=== PATIENT | female | born 1955 | race Caucasian/White ===

== ENCOUNTER 2017-09-15 19:16 | Inpatient (IN) | payer OTHER, SELFPAY ==
[~2017-09-15 19:16] MED LIST: ISOVUE-370 76%-LOCM 1 ML ONE
[2017-09-15 19:55] LABS: Mean Corpuscular HGB CONC 33.6 g/dL (32.0-36.0); Mean Corpuscular Hemoglobin 32.8 pg (27.0-31.0); Mean Corpuscular Volume 97.6 fl (81.0-99.0); Mean Platelet Volume 7.2 fL (7.4-10.4); Platelet Count 399 thou/uL (130-400); RBC Distribution Width 11.8 % (11.5-14.5); Red Blood Cell (RBC) Count 4.26 mill/uL (4.20-5.40); White Blood Cell (WBC) Count 20.4 thou/uL (4.8-10.8)
[2017-09-15] MEDS ORDERED: Acetaminophen 500 MG TAB ONE (19:56)
[2017-09-15 20:00] LABS: INR-International Normal Ratio 1.1; PTT 38.9 SEC (22.9-36.1); Prothrombin Time 14.5 SEC (12.0-14.7)
[2017-09-15] MEDS ORDERED: Piperacillin/Tazobactam 3.375 GM in Sodium Chloride 0.9% 100 ML IVPB SCH (20:00)
[2017-09-15 20:17] LABS: CO2 Tension 33.1 mmHg (35.0-45.0); pH, Arterial 7.47 (7.35-7.45)
[2017-09-15 20:18] LABS: Actual Bicarbonate (HCO3a) 23.3 mEq/L (22-26); Base Excess (BEa) 0.2 mEq/L (0 (+/-) 2.5); Hematocrit-ABG 44.2 % (36.0-47.0); O2 Tension (PaO2) 85.4 mmHg (80.0-100.0)
[2017-09-15 20:19] LABS: ALT (SGPT) 20 U/L (8-55); AST (SGOT) 15 U/L (5-34); Albumin 3.8 g/dL (3.4-4.8); Alkaline Phosphatase 88 U/L (40-150); Anion Gap 16 mmol/L (10-20); BUN (Urea Nitrogen) 9 mg/dL (9.8-20.1); Bilirubin, Total 0.6 mg/dL (0.2-1.2); CK (CPK) 42 U/L (29-168); CKMB 0.2 ng/mL (0-6.6); Calc. Creatinine Clearance 0 mL/min (70-130); Calcium 9.5 mg/dL (7.8-10.44); Carbon Dioxide 21 mmol/L (23-31); Chloride 100 mmol/L (98-107); Estimated GFR-MDRD 73; Globulin 4.5 g/dL (2.4-3.5); Glucose 127 mg/dL (80-115); Lipase 14 U/L (8-78); Magnesium 1.9 mg/dL (1.6-2.6); Potassium 3.7 mmol/L (3.5-5.1); Protein, Total 8.3 g/dL (6.0-8.3); Sodium 133 mmol/L (136-145); Troponin I Less than 0.010 ng/mL (< 0.028)
[2017-09-15 20:19] LABS: Analyzer IN Cardio ER; Puncture Site RR
[2017-09-15 20:20] LABS: Bilirubin Negative (Negative); Blood, Urine Negative (Negative); Clarity CLOUDY (Clear); Glucose, Urine (Dipstick) Negative (Negative); Leukocyte Negative (Negative); Nitrite Negative (Negative); Protein, Urine (Dipstick) 30 mg/dL (Neg-Trace)
[2017-09-15 20:21] LABS: Calcium, Ionized 1.2 mmol/L (1.12-1.30)
[2017-09-15 20:21] LABS: Bacteria/HPF None Seen HPF (None Seen); Hyaline Casts/LPF 0-3 HYALINE CAST LPF (0-3 Hyaline); Pathc Cast-AUWi Flag 0.27 (0-2.49)
[2017-09-15] MEDS ORDERED: Fentanyl 100 MCG/2 ML VIAL ONE (20:21)
[2017-09-15 20:27] LABS: Band 2 % (5-11); Lymphocytes 3 % (21-51); MDiff Complete? YES; Monocytes 8 % (0-10); Neutrophil 87 % (42-75); PLT Morphology Comment Appears Adequate
[2017-09-15 20:30] LABS: RBC/HPF 0-3 HPF (0-3)
--- NOTE | 2017-09-15 20:34 | RAD ---
PORTABLE CHEST: 09/15/17 HISTORY: Shortness of breath. Opacification of the left lung base is noted. Right lung appears well aerated. IMPRESSION: Dense consolidation of the left lung base. POS: [facility]
--- NOTE | 2017-09-15 21:57 | CT ---
CT PULMONARY ANGIO OF CHEST WITH IV ENHANCEMENT: 09/15/17 Multiple axial tomograms obtained through the chest following angio protocol with multiplanar reconst ructions and 3D postprocessing. HISTORY: Shortness of breath. Cough. Pulmonary arteries are suboptimally opacified. There is no evidence of proximal pulmonary embolus to the segmental level. Thoracic aorta is unremarkable. No evidence of dissection. The mediastinum is un remarkable with nonspecific mediastinal lymph nodes seen. There is a moderate sized left pleural effusion, some of which appears loculated along the lateral lo wer chest. There is dense left basilar atelectasis. There is streaky atelectasis in the right lung ba se. IMPRESSION: 1. No evidence of proximal pulmonary embolus. 2. Moderate sized left pleural effusion, some of which appears loculated along the lateral lower chest wall. There is dense left basilar atelectasis. 3. Streaky atelectasis in the right lung base. POS: [facility]
--- NOTE | 2017-09-16 01:03 | HP-2 ---
DATE OF ADMISSION: 09/15/2017 CODE STATUS: FULL. PRIMARY CARE PHYSICIAN: Mati Villeda MD ATTENDING PHYSICIAN: Mati Villeda MD RESIDENT: Ermias Shabazz MD, PGY1 CHIEF COMPLAINT: Shortness of breath and cough. HISTORY OF PRESENT ILLNESS: This is a 62-year-old female who came in here with a complaint of shortness of breath. She stated that she started having a cough on Sunday, would have lots of co ughing fits, went and saw Dr. Villeda on , was told she had bronchitis, was given amoxicillin a nd an extra inhaler. She has a history of COPD, on top of her ProAir. She stated that this evening, she started burning up. When she went to sit down on a chair, started burning up, started getting r eal short of breath, coughing, and could not catch her breath and at this time called 911. She repor ts with the cough having productive sputum; sometimes mucousy color, sometimes brown in color. She a lso reports being feverish for over a month. She said that at least once a day, she would feel like she had heat up. Did not take any temperatures at home, just felt feverish. She said she had one ti me also where she got the chills. She says that she has had increased fatigue and shortness of breat h since Sunday with this cough. Reports having a little bit of a sore throat. Reports pain in the l eft side of her chest and rib area. Denies any chest pain. Does report feeling like her heart beats fast at times, she said after sometimes of coughing fits. Denies any diarrhea, nausea, vomiting, co nstipation. Denies any rashes, itching, or muscle pains. She also has had no sick contact. When yaneli barajas went to the clinic also she was checked for flu there and was negative as well. REVIEW OF SYSTEMS: All review of systems not listed in the HPI are otherwise negative at this time. PAST MEDICAL HISTORY: Hypertension, COPD, type 2 diabetes mellitus. PAST SURGICAL HISTORY: Had a cyst removed from her leg when she was age 4. ALLERGIES: CODEINE. MEDICATIONS: She did not have her medication list with her and did not know medicine. She knows she was taking amoxicillin for the bronchitis and taking ProAir inhaler. FAMILY HISTORY: Insignificant. SOCIAL HISTORY: She quit few years ago in April, but she was a 9-gngs-qrm-day smoker for 40+ yea rs. No alcohol use. No illicit drug use. PHYSICAL EXAMINATION: VITAL SIGNS: Blood pressure was 141/91, pulse was 119, respirations 22, temperature was 100.4, pulse ox was 94% on 3 liters. Current weight was 99.7 kilograms. GENERAL: She is alert and oriented x3. Well developed, obese, appropriately interactive. EYES: Conjunctivae within normal limit. ENT: Nasal mucosa within normal limit. Oropharynx within normal limit. NECK: Supple. No lymphadenopathy. No thyromegaly. CARDIOVASCULAR: Regular rhythm, but running fast tachycardic. No murmurs. No gallops. Radial puls es and pedal pulses palpated bilaterally. RESPIRATORY: Normal breathing effort. No retractions. Breath sounds were difficult to auscultate o n the left side particularly. Overall, hard to auscultate breath sounds due to body habitus. No ral es. No wheezes. Maybe some mild crackles as well on the left side. SKIN: Warm and dry. No lesions. ABDOMEN: Soft, nontender to palpation. Bowel sounds heard in all 4 quadrants. No masses or distent ion. EXTREMITIES: No edema or pitting. MUSCULOSKELETAL: Structure within normal limit. Tone within normal limit. Full range of motion. NEUROLOGIC: No focal neuro deficit. PSYCHIATRIC: Appropriate. LABORATORY DATA: White blood cell count was 20.4, hemoglobin 14, hematocrit 41.6, MCV 97.6, platelet s 399, 87% neutrophils. Sodium was 133, potassium was 3.7, chloride was 100, carbon dioxide was 21, BUN was 9, creatinine was 0.8, glucose was 127, calcium was 9.5, total protein 8.3, albumin 3.8, tota l bilirubin 0.6, AST 15, ALT was 20, alkaline phos was 88, magnesium was 1.9. Flu A and B were negat renata. Lactic acid was 0.9. CK was 42, CK-MB was 0.2. Troponin was less than 0.01. Lipase was 14. BNP was 10. ABG, pH was 7.47, pCO2 was 33.1, pO2 was 88.4. UA had 30 protein, leukocyte esterase ne gative, nitrite negative, ketone negative, glucose negative, red blood cells 0-3, white blood cells 4 -6, squamous epithelial 7-10, bacteria none. PTT was 98.9, protime was 14.5, INR was 1.1. Chest x-ray showed dense consolidation in the left lower base. CTA of the chest showed no evidence o f PE, moderate left pleural effusion loculated along the lateral lower chest wall. Dense left basila r atelectasis and then streaky atelectasis in the right lung base. ASSESSMENT AND PLAN: This is a 62-year-old female with, 1. Sepsis secondary to community-acquired pneumonia. We will admit to telemetry as her heart rate i s a little bit elevated, sinus tachycardia on EKG. We will start her on vancomycin and Zosyn for bro ad-spectrum coverage as she does have some pleural effusion, likely from the pneumonia. We will put her on IV fluids at a rate of 175, a little above base maintenance rate, as she states she has been d rinking lots of fluids and due to her tachycardia. We will check a urine strep and Legionella antige n to help with antibiotic choice, and we will check blood and urine cultures. We will keep her on O2 and keep her O2 sats above 90%. We will do DuoNeb q.4 hours. We will give her a little bit of pred nisone burst 40 mg once daily for the next 5 days. 2. Chronic obstructive pulmonary disease exacerbation secondary to above. We would follow the plan as above. 3. Left-sided pleural effusion versus empyema. We will give her antibiotics, O2 p.r.n., and we will need to possibly consider consulting Pulmonology or repeat imaging and plan as above. 4. Hypertension. We will need her home meds and records. They will be bringing meds in the morning . We will continue home medications and monitor blood pressure as needed. 5. Diabetes mellitus type 2. She does not take any medicines at home. We will monitor before meals and at bedtime and will add insulin if blood sugars are elevated. 6. Hyponatremia, mild. She is getting fluid replacement for sepsis as planned in for above. 7. Deep venous thrombosis prophylaxis. Izaiah score is 5. We will give her Lovenox for now.
[2017-09-16] MEDS ORDERED: Fentanyl 100 MCG/2 ML VIAL SLOW IVP PRN ×2 (02:24→11:05)
[2017-09-16] MEDS ORDERED: Ondansetron ODT 4 MG TAB SL PRN (02:25)
[2017-09-16] MEDS ORDERED: Acetaminophen 325 MG TAB PO PRN (02:25)
[2017-09-16] MEDS ORDERED: Ondansetron HCl/PF 4 MG/2 ML Vial IVP PRN ×2 (02:25→02:53)
[2017-09-16] MEDS ORDERED: Sodium Chloride 0.45% 1,000 ML IV SCH (02:30)
[2017-09-16] MEDS ORDERED: Acetaminophen 650 MG Suppository PR PRN (02:53)
[2017-09-16] MEDS ORDERED: Calcium Carbonate 500 MG ChewTAB PO PRN (02:53)
[2017-09-16] MEDS ORDERED: Ondansetron ODT 4 MG TAB PO PRN (02:53)
[2017-09-16] MEDS: Sodium Chloride 0.9% 1,000 ML IV SCH ×2 (03:04→10:44)
[2017-09-16] MEDS ORDERED: Piperacillin/Tazobactam 3.375 GM in Sodium Chloride 0.9% 100 ML IVPB SCH (03:15)
[2017-09-16 03:25] LABS: Strep pneumo Urine Ag NEGATIVE (NEGATIVE)
[2017-09-16 03:26] LABS: Legionella Urinary Ag Negative (Negative)
[2017-09-16] MEDS: Ketorolac Tromethamine 30 MG/ML VIAL IVP PRN ×2 (04:14→10:37)
[2017-09-16] MEDS: Acetaminophen 325 MG TAB PO PRN (04:16)
[2017-09-16] MEDS: Vancomycin HCl 1.5 GM in Sodium Chloride 0.9% 250 ML 300 ML IVPB SCH ×3 (04:21→20:35)
[2017-09-16 06:14] LABS: Anion Gap 14 mmol/L (10-20); BUN (Urea Nitrogen) 8 mg/dL (9.8-20.1); Calc. Creatinine Clearance 0 mL/min (70-130); Calcium 8.7 mg/dL (7.8-10.44); Carbon Dioxide 22 mmol/L (23-31); Chloride 105 mmol/L (98-107); Estimated GFR-MDRD 74; Glucose 121 mg/dL (80-115); Potassium 3.6 mmol/L (3.5-5.1); Sodium 137 mmol/L (136-145)
[2017-09-16] MEDS ORDERED: Fentanyl 100 MCG/2 ML VIAL SLOW IVP ONE (06:26)
[2017-09-16 06:43] LABS: Band 8 % (5-11); Eosinophils 2 % (0-10); Hemoglobin 12.1 g/dL (12.0-16.0); Lymphocytes 3 % (21-51); MDiff Complete? YES; Mean Corpuscular Hemoglobin 31.4 pg (27.0-31.0); Mean Corpuscular Volume 98.1 fl (81.0-99.0); Mean Platelet Volume 7.2 fL (7.4-10.4); Monocytes 11 % (0-10); Neutrophil 76 % (42-75); Platelet Count 340 thou/uL (130-400); RBC Distribution Width 11.9 % (11.5-14.5); Red Blood Cell (RBC) Count 3.84 mill/uL (4.20-5.40); White Blood Cell (WBC) Count 24.1 thou/uL (4.8-10.8)
[2017-09-16] MEDS ORDERED: Fentanyl 100 MCG/2 ML VIAL SLOW IVP SCH (06:45)
[2017-09-16] MEDS: predniSONE 20 MG TAB PO SCH (08:47)
[2017-09-16] MEDS: guaiFENesin/DM ER PO SCH ×2 (08:48→20:36)
[2017-09-16] MEDS: Enoxaparin Sodium 40 MG/0.4 ML SYRINGE SC SCH (08:48)
[2017-09-16] MEDS: Piperacillin/Tazobactam 3.375 GM in Sodium Chloride 0.9% 100 ML IVPB SCH ×3 (08:49→22:57)
[2017-09-16] MEDS ORDERED: Ketorolac Tromethamine 30 MG/ML VIAL IVP SCH (12:00)
--- NOTE | 2017-09-16 16:13 | ADD-HP ---
Please see the note from Dr. Ermias Shabazz for which I concur. The patient was seen and evaluated an d examined with residents by bedside. HISTORY OF PRESENT ILLNESS: A 62-year-old female who for about a month has had some low grade fever that developed a cough in the last week and then left-sided chest pain. He has been on amoxicillin a nd beta agonist rescue inhalers and pain seem to worsen. Shortness of breath and coughing got worse, so she called 911 and was taken to the ER by ambulance. Chest x-ray showed fluid accumulation base of the left lung, possible pneumonia, and this was confirmed by CTA. Unclear if this is all a pleura l effusion or possibly empyema and also question is an atelectasis or truly infiltrate around it. Sh e does have high white count, feverm and everything that would indicate this is likely infectious. PAST MEDICAL HISTORY: All per the history and physical. PAST SURGICAL HISTORY: All per the history and physical. ALLERGIES: All per the history and physical. MEDICATIONS: All per the history and physical. FAMILY HISTORY: All per the history and physical. SOCIAL HISTORY: All per the history and physical. HOME MEDICATIONS: Losartan 100 mg daily. PHYSICAL EXAMINATION: VITAL SIGNS: Pulse has been a little bit high, O2 sats mid 90s, afebrile, does not appear to be in s evere respiratory distress. ENT: Moist mucosa. Conjunctivae not pale. NECK: No lymphadenopathy or thyromegaly. LUNGS: Chest is significant for decreased breath sounds throughout, especially on the left, but she does not give that great of respiratory effort and she states deep breath seems to both induced cough ing and then pain. CARDIOVASCULAR: Tachycardic but regular. ABDOMEN: Benign. EXTREMITIES: Show no edema. LABORATORY AND X-RAY FINDINGS: White count was high at 20, did not have lactic acidosis. Chest x-ra y and CTA as described above. ASSESSMENT AND PLAN: Community-acquired pneumonia with peripneumonic effusion versus empyema. PLAN: Zosyn, vancomycin, steroids, nebulizers, oxygen, and we will monitor the chest x-rays over the few days. Certainly, if the fluid does not seem to decrease, I may have to get cardiothoracic surge ons involved to consider something like a chest tube. Otherwise, continue home medications, although we will hold off blood pressure meds for now as her blood pressure is normal. We will also monitor her blood sugar for diabetes.
[2017-09-16] MEDS: Ketorolac Tromethamine 30 MG/ML VIAL IVP SCH ×2 (16:59→22:58)
[2017-09-16] MEDS ORDERED: PROVENTIL INHALER 6.7 G (200 INHALATIONS) INH PRN (17:09)
[2017-09-16] MEDS ORDERED: Dextrose 50% Abboject 50 ML SYRINGE SLOW IVP PRN (17:30)
[2017-09-16] MEDS ORDERED: Dextrose 5% in Water 1,000 ML IV PRN (17:30)
[2017-09-16] MEDS: HumaLOG 300 UNITS/3 ML VIAL SC PRN ×2 (18:06→20:51)
[2017-09-16] MEDS: Mometasone/Formoterol 120 PUFF INHALER INH SCH (18:55)
--- NOTE | 2017-09-16 19:04 | PDOC.EVN ---
Event Note - Event Note Event Note: Patient was seen and evaluated this AM. She did not experience any significant overnight events. Her left lower rib pain improved after administration of toradol. Patient does report increased coughing and pain associated with coughing. Her symptoms have worsened over the last few days. She reports chills and shortness of breath. It was explained that some of the pain may be KYLIE, but it could also be secondary to left sided pleural effusion. Explained to patient that we would be treating her for pneumonia and do repeat CXR in the AM to evaluate for improvement in pleural effusion. If there is no improvement in pleural effusion or if it worsens, we will consult pulmonology or CV surgery for possible thoracentesis to evaluate whether pleural effusion/loculation is 2/ 2 empyema. This was all explained to patient. Also treating patient for COPD exacerbation. She did have some notable wheezing on exam. Symptoms have improved with breathing treatments and steroids. Patient had tachycardia on exam , but was stable and asymptomatic. She was adequately fluid resuscitated which improved tachycardia. We will continue with antibiotics which include vanc and zosyn for possible empyema. Patient was given PRN fentanyl for moderate to severe pain. She has unspecified codeine allergy.
[2017-09-17] MEDS: Piperacillin/Tazobactam 3.375 GM in Sodium Chloride 0.9% 100 ML IVPB SCH ×4 (03:00→21:57)
[2017-09-17 03:48] LABS: Vancomycin, Trough 20.4 ug/mL
[2017-09-17] MEDS: Vancomycin HCl 1.5 GM in Sodium Chloride 0.9% 250 ML 300 ML IVPB SCH ×3 (03:59→21:57)
[2017-09-17] MEDS: Ketorolac Tromethamine 30 MG/ML VIAL IVP SCH ×4 (05:25→21:52)
[2017-09-17] MEDS: Acetaminophen 325 MG TAB PO PRN (05:30)
--- NOTE | 2017-09-17 06:15 | PDOC.FM ---
- Subjective Subjective: Patient states she had a good night. She states that her breathing is improved and the left sided pain is improved with the medications. She specifically states she is helped by the nebulizer treatments. She also notes that her biggest complaint this morning is swelling of her toes and fingers from either the insulin or the steroids she states. She denies chest pain, sob, n/v/d, fevers, or chills. She has no other concerns this morning. - Objective Vital Signs & Weight: Vital Signs (12 hours) Temp Pulse Resp BP Pulse Ox 09/17/17 04:00 98.4 F 100 16 144/82 H 32 L 09/17/17 00:00 99.1 F 96 16 139/76 95 09/16/17 20:00 98.1 F 100 16 09/16/17 18:55 100 16 09/16/17 18:52 100 16 94 L Weight Weight 101.605 kg I&O: 09/15/17 09/16/17 09/17/17 06:59 06:59 06:59 Intake Total 3460 Output Total 1000 Balance 2460 Result Diagrams: 09/16/17 05:21 09/16/17 05:21 Phys Exam - Physical Examination HEENT: PERRLA, moist MMs Neck: no nodes, no JVD Respiratory: no wheezing Crackles at bilateral lung bases L > R Cardiovascular: RRR, no significant murmur Gastrointestinal: soft, non-tender, no distention, positive bowel sounds Musculoskeletal: no edema, pulses present Subjective swelling of feet and hands, no pitting edema present Neurological: non-focal, normal sensation, moves all 4 limbs Lymphatic: no nodes Psychiatric: normal affect, A&O x 3 Skin: no rash Dx/Plan (1) Sepsis due to pneumonia Code(s): J18.9 - PNEUMONIA, UNSPECIFIED ORGANISM; A41.9 - SEPSIS, UNSPECIFIED ORGANISM Status: Acute (2) COPD exacerbation Code(s): J44.1 - CHRONIC OBSTRUCTIVE PULMONARY DISEASE W (ACUTE) EXACERBATION Status: Acute (3) Pleural effusion Code(s): J90 - PLEURAL EFFUSION, NOT ELSEWHERE CLASSIFIED Status: Acute (4) HTN (hypertension) Code(s): I10 - ESSENTIAL (PRIMARY) HYPERTENSION Status: Acute (5) DM2 (diabetes mellitus, type 2) Status: Acute (6) Hyponatremia Code(s): E87.1 - HYPO-OSMOLALITY AND HYPONATREMIA Status: Acute - Plan Plan: 1. Sepsis - Likely resolved - Continue Antibiotics, will de-escalate when sources known - Continue IVF - Cultures pending - Vanc trough 20.4 this AM 2. COPD exacerbation - Continue steroids - Continue inhalers - Will wean O2 use 3. Left Sided pleural effusion vs. empyema - Repeat CXR shows worsening opacification of L side - Will consider Pulmonary consultation 4. HTN - Continue home meds - Monitor BP 5. DM2 - Accuchecks - Not currently medicated - Will check A1C
--- NOTE | 2017-09-17 07:51 | RAD ---
CHEST 2 VIEWS: COMPARISON: 09/23/17. HISTORY: Shortness of breath. Pneumonia. FINDINGS: Worsening opacification of the left hemithorax. Left heart border and left hemidiaphragm are obscure d. Stable aeration of the right lung. Lungs are hyperinflated. No pneumothorax. IMPRESSION: Worsening opacification of left hemithorax. There is evidence for pleural and parenchymal changes. Continued surveillance. POS: [facility]
[2017-09-17] MEDS: Mometasone/Formoterol 120 PUFF INHALER INH SCH ×2 (08:40→20:15)
[2017-09-17 08:54] LABS: Hemoglobin A1c 5.3 % (4.0-6.0)
[2017-09-17 09:30] LABS: #Eosinphils 0.2 thou/uL (0.0-0.7); #Lymphocytes 1.6 thou/uL (1.20-3.40); #Monocytes 1.2 thou/uL (0.11-0.59); #Neutrophils 13.8 thou/uL (1.40-6.50); %Basophils 0.1 % (0.0-1.0); %Eosinophils 1.4 % (0.0-10.0); %Lymphocytes 9.7 % (21.0-51.0); %Monocytes 7.3 % (0.0-10.0); %Neutrophils 81.5 % (42.0-75.0); Hemoglobin 11.4 g/dL (12.0-16.0); Mean Corpuscular HGB CONC 31.7 g/dL (32.0-36.0); Mean Corpuscular Hemoglobin 31.4 pg (27.0-31.0); Mean Corpuscular Volume 98.9 fl (81.0-99.0); Platelet Count 332 thou/uL (130-400); RBC Distribution Width 11.8 % (11.5-14.5); Red Blood Cell (RBC) Count 3.65 mill/uL (4.20-5.40); White Blood Cell (WBC) Count 16.9 thou/uL (4.8-10.8)
[2017-09-17 09:51] LABS: Anion Gap 15 mmol/L (10-20); BUN (Urea Nitrogen) 13 mg/dL (9.8-20.1); Calc. Creatinine Clearance 118 mL/min (70-130); Calcium 9.4 mg/dL (7.8-10.44); Carbon Dioxide 23 mmol/L (23-31); Chloride 104 mmol/L (98-107); Estimated GFR-MDRD 73; Glucose 104 mg/dL (80-115); Potassium 3.4 mmol/L (3.5-5.1); Sodium 139 mmol/L (136-145)
[2017-09-17] MEDS: predniSONE 20 MG TAB PO SCH (10:56)
[2017-09-17] MEDS: Enoxaparin Sodium 40 MG/0.4 ML SYRINGE SC SCH (10:56)
[2017-09-17] MEDS: guaiFENesin/DM ER PO SCH ×2 (10:58→21:51)
[2017-09-17] MEDS: Losartan 25 MG TAB PO SCH (10:58)
--- NOTE | 2017-09-17 12:19 | ADD-PRG ---
DATE OF SERVICE: 09/17/2017 This is an addendum to the note of Dr. Ricardo Gallo. Ms. Shay is a 62-year-old white female patient who was admitted several days ago with shortnes s of breath. She was found to have pneumonia with a very large left pleural effusion, which has in f act enlarged. We will consult Pulmonology for a thoracentesis. In the meantime, she will continue o n antibiotics for community-acquired pneumonia. She this morning is awake and alert. She is in no d istress. She is not overtly short of breath. She has several questions about her condition all whic h the residents answered appropriately. We will await results of the pulmonary consultation and thor acentesis.
[2017-09-17 15:59] LABS: BF Color Pink; Body Fluid Source PLEURAL FLUID; Clarity Hazy (Clear); Tube # EDTA
[2017-09-17 16:01] LABS: WBC/NonHematic-Auto 3200 /cumm
[2017-09-17 16:02] LABS: RBC Count-Automated 16000 /cumm
[2017-09-17 16:04] LABS: Fluid, Triglycerides 48 mg/dL (Not Available); Pleural Fluid, Amylase Less than 30 U/L (Not Available); Pleural Fluid, Glucose Less than 20 mg/dL; Pleural Fluid, LDH 1014 U/L (Not Available); Pleural Fluid, Protein 5.3 g/dL
--- NOTE | 2017-09-17 16:07 | OP ---
DATE OF PROCEDURE: 09/17/2017 PROCEDURE: Left thoracentesis. PREOPERATIVE DIAGNOSIS: Left pleural effusion. POSTOPERATIVE DIAGNOSIS: Complex left pleural effusion. ANESTHESIA: 1% lidocaine without epinephrine. DESCRIPTION OF PROCEDURE: Informed consent was obtained from the patient prior to the procedure. Sh karl understood the risks involved including bleeding, infection, accidental lung puncture and agreed to proceed. The patient was placed in the sitting position. The left chest was first analyzed with ultrasound th at showed the exact location of effusion, which was at the 5th-6th interspace at the lateral scapular line. Using 1% lidocaine, the entry site was anesthetized after being cleansed with chlorhexidine. A [id number]-T-[id number] catheter was placed in the chest and approximately 100 mL of turbid orange fluid w as removed and it was sent for appropriate studies. I was unable to evacuate past that point. The p rocedure was tolerated well.s
--- NOTE | 2017-09-17 16:12 | CON ---
DATE OF CONSULTATION: 09/17/2017 CONSULTING PHYSICIAN: [facility] REASON FOR CONSULTATION: Pleural effusion. HISTORY OF PRESENT ILLNESS: This is a 62-year-old female who became ill 1 week ago with a cough. Dedrick barajas saw her primary care physician on and was prescribed some amoxicillin for what was deemed to be bronchitis. She came to the emergency room here on 09/15 with complaints of shortness of breat h and left-sided chest pain. She states left-sided chest pain started on . She had a chest x-ray x2 and a CT scan demonstrating a loculated left-sided pleural effusion. She has no previous hi story of cancer. PAST MEDICAL HISTORY: 1. COPD. 2. Hypertension. 3. Diabetes mellitus type 2. PAST SURGICAL HISTORY: A cyst removed from her leg. ALLERGIES: CODEINE. MEDICATIONS PRIOR TO ADMISSION: ProAir and amoxicillin. FAMILY MEDICAL HISTORY: Unremarkable for lung disease. SOCIAL HISTORY: Smoked 2 packs a day for 40 years, quit in April. Does not consume alcohol. Do es not use illicit drugs. REVIEW OF SYSTEMS: Twelve-point review of systems remarkable for the chest pain and subjective fever , otherwise negative. PHYSICAL EXAMINATION: VITAL SIGNS: Temperature 97.0, pulse 98, respirations 16, O2 sat 95% on 2 liters and blood pressure 139/84. GENERAL: She is awake and alert and is in no acute distress. HEENT: Pupils react. Sclerae anicteric. Oropharynx clear. NECK: No adenopathy or JVD. LUNGS: She has diminished breath sounds in the left compared to right. She has dullness to percussi on on the left side globally, right side has no dullness. CARDIOVASCULAR: S1 and S2 are regular, without murmur. ABDOMEN: Soft, obese, nontender and nondistended. EXTREMITIES: No clubbing, cyanosis or edema. LABORATORY DATA: INR 1.1 and PTT 38.9. White blood cell count 16.9, hemoglobin 11.4, hematocrit 36. 1 and platelet count 332. PH of 7.47, pCO2 of 33 and pO2 of 85 on 3 liters. Sodium 139, potassium 3 .4, chloride 104, CO2 of 23, BUN 13, creatinine 0.8 and glucose 104. I reviewed her CT scan and her chest x-ray personally. Findings are as noted in history of present illness. ASSESSMENT: Left-sided complex pleural effusion. See separate operative thoracentesis note. This i s a complex parapneumonic effusion that is multiloculated. I was unable to evacuate more than 100 mL of fluid with thoracentesis. RECOMMENDATIONS: The patient needs thorascopic versus open decortication. I have consulted the card iothoracic surgery group for further intervention.
--- NOTE | 2017-09-17 17:05 | RAD ---
RADIOGRAPH CHEST 1 VIEW: Date: 09/17/17 Time: 1612 HOURS HISTORY: 62-year-old female with left pleural effusion, status post thoracentesis. COMPARISON: 09/17/17 at 0729 hours. FINDINGS: Again noted is the opacification of the lower half of the left lung. This has minimally improved. Thi s obscures the entire left cardiac border. There is no pneumothorax. No other area of consolidation. No other interval change. IMPRESSION: 1. No pneumothorax. 2. Slight interval decrease in volume of large left pleural effusion. 3. No interval change in underlying severe left lower lobe and lingular atelectasis (collapse). SILVIA [] POS: [facility]
--- NOTE | 2017-09-17 19:36 | CON ---
DATE OF CONSULTATION: 09/17/2017 REQUESTING PHYSICIAN: Dr. Gerardo Greene ATTENDING PHYSICIAN: Dr. Mati Lopez. CHIEF COMPLAINT: Shortness of breath and pleuritic left chest pain. HISTORY OF PRESENT ILLNESS: The patient is 62-year-old diabetic smoker, who week or 10 days ago pres ented to her primary care physician with complaints of cough, and she was started on oral antibiotics , but over the ensuing week or so, gradually worsened and on the day of presentation, the day before yesterday, she was very short of breath and was having left-sided pleuritic chest pain. The chest x- ray demonstrated left basilar lateral density consistent with a loculated effusion which was confirme d by CT scanning. The CT scan did not show any free flowing fluid and appeared to show some rind at the left base tracking at the lateral aspect of the lower lobe. PAST MEDICAL HISTORY: Significant for COPD, hypertension, and diabetes mellitus. HOME MEDICATIONS: Losartan. Prior to admission, she had been started on ProAir inhalers and amoxici llin. ALLERGIES: She reports intolerance to CODEINE. SOCIAL HISTORY: The patient has about an [id number] history of smoking, having smoked since a [age] g adult, 2 packs of cigarettes a day but quit in April. REVIEW OF SYSTEMS: Negative for any hemoptysis. Negative for any anginal chest pain. Negative for any weight loss, any hematemesis, or hematochezia. PHYSICAL EXAMINATION: GENERAL: She is in no distress. VITAL SIGNS: Heart rate is in the 90s, blood pressure 139/84, temperature is 97.0. T-max over the l ast 24 hours has been 99.7. EYES: She has no obvious xanthelasma. NECK: No JVD. CHEST: Clear to auscultation except at the left base where she has markedly diminished breath sounds with some subtle dullness to percussion. No egophony. ABDOMEN: Obese, soft, and nontender. EXTREMITIES: She has easily palpable radial and dorsalis pedis pulses. RADIOLOGY: Her chest x-ray and chest CT are described as above. LABORATORY DATA: Her white count on admission was 20.4 with 87 neutrophils and 2% bands and overnigh t dary to 24.1 with 76 neutrophils and 8 bands. Today, her white count is down to 16.9. Her hemoglo bin is 11.4, hematocrit 33.2. PT was 14.5, INR 1.1, PTT 38.9. Electrolytes were normal. Glucose 12 7, BUN 9, creatinine 0.8. LFTs were normal. Albumin 3.8. Rapid swab for flu A and B were negative. Blood cultures on admission so far no growth. Urine culture was negative. ASSESSMENT AND PLAN: Loculated left pleural effusion versus empyema. We will plan on open decortica tion with a post-procedure bronchoscopy for pulmonary toilet.
[2017-09-17 20:59] LABS: BF Segmented Neutrophils 94 %; Cell Count Non Hematic 3 %; Lymphocytes 3 %
[2017-09-18] MEDS: Piperacillin/Tazobactam 3.375 GM in Sodium Chloride 0.9% 100 ML IVPB SCH ×4 (03:13→22:04)
[2017-09-18] MEDS: Vancomycin HCl 1.5 GM in Sodium Chloride 0.9% 250 ML 300 ML IVPB SCH ×3 (04:13→22:04)
[2017-09-18] MEDS: Losartan 25 MG TAB PO SCH (05:27)
[2017-09-18] MEDS: Ketorolac Tromethamine 30 MG/ML VIAL IVP SCH ×4 (06:12→22:05)
--- NOTE | 2017-09-18 06:21 | PDOC.FM ---
- Subjective Subjective: Patient states she had her best night of sleep in over a week. She notes her pain and breathing is much improved. She states that she is ready for surgery, but anxious for the anesthesia. She states that she doesn't especially want to have the procedure, but understands that she needs it. She denies n/v/d, fevers , chills, or coughs. She is in good spirits this morning. She has no other complaints this morning. - Objective Vital Signs & Weight: Vital Signs (12 hours) Temp Pulse Resp BP BP Pulse Ox 09/18/17 05:18 88 L 09/18/17 04:00 99.4 F 18 181/93 H 94 L 09/18/17 00:00 96 20 148/98 H 09/17/17 20:18 107 H 18 88 L 09/17/17 20:15 107 H 18 88 L 09/17/17 20:00 98.6 F 102 H 18 162/90 H 93 L Weight Weight 101.605 kg I&O: 09/16/17 09/17/17 09/18/17 06:59 06:59 06:59 Intake Total 3460 1300 Output Total 1000 2400 Balance 2460 -1100 Result Diagrams: 09/17/17 09:13 09/17/17 09:13 Phys Exam - Physical Examination HEENT: PERRLA, moist MMs Neck: no nodes, no JVD Respiratory: no wheezing, clear to auscultation bilateral Cardiovascular: RRR, no significant murmur Gastrointestinal: soft, non-tender, no distention, positive bowel sounds Musculoskeletal: no edema, pulses present Neurological: non-focal, normal sensation, moves all 4 limbs Lymphatic: no nodes Psychiatric: normal affect, A&O x 3 Skin: no rash Dx/Plan (1) Sepsis due to pneumonia Code(s): J18.9 - PNEUMONIA, UNSPECIFIED ORGANISM; A41.9 - SEPSIS, UNSPECIFIED ORGANISM Status: Acute (2) COPD exacerbation Code(s): J44.1 - CHRONIC OBSTRUCTIVE PULMONARY DISEASE W (ACUTE) EXACERBATION Status: Acute (3) Pleural effusion Code(s): J90 - PLEURAL EFFUSION, NOT ELSEWHERE CLASSIFIED Status: Acute (4) HTN (hypertension) Code(s): I10 - ESSENTIAL (PRIMARY) HYPERTENSION Status: Acute (5) DM2 (diabetes mellitus, type 2) Status: Acute (6) Hyponatremia Code(s): E87.1 - HYPO-OSMOLALITY AND HYPONATREMIA Status: Acute - Plan Plan: 1. Sepsis - Likely resolved - Continue Antibiotics - Continue IVF - Cultures pending - Vanc trough 20.4 this AM 2. COPD exacerbation - Continue steroids - Continue inhalers - Will wean O2 use 3. Left Sided pleural effusion vs. empyema - Repeat CXR shows worsening opacification of L side - Consulted Pulmonology, Appreciate Dr. Greene's recs - s/p thoracentesis sent for analysis - CV surgery consulted for decortication. Plan for decortication today. 4. HTN - Continue home meds - Monitor BP 5. DM2 - Accuchecks - Not currently medicated - Will check A1C Disposition: Stable, Will await surgery results.
[2017-09-18] MEDS: Mometasone/Formoterol 120 PUFF INHALER INH SCH ×2 (07:02→20:13)
[2017-09-18] MEDS ORDERED: hydrALAZINE 20 MG/ML VIAL SLOW IVP PRN (07:53)
[2017-09-18] MEDS: predniSONE 20 MG TAB PO SCH (09:03)
[2017-09-18] MEDS: Enoxaparin Sodium 40 MG/0.4 ML SYRINGE SC SCH (09:03)
[2017-09-18] MEDS: guaiFENesin/DM ER PO SCH ×2 (09:04→22:50)
--- NOTE | 2017-09-18 10:10 | PDOC.PULPN ---
Progress Note: Subj/Obj - Subjective Date: 09/18/17 Time: 10:05 Narrative: less pain on left - ROS All systems: reviewed and no additional remarkable complaints except as stated Respiratory: chest soreness - Objective Allergies/Adverse Reactions: Allergies Allergy/AdvReac Type Severity Reaction Status Date / Time codeine Allergy Verified 09/16/17 06:05 Medications: Current Medications Acetaminophen (Tylenol) 650 mg PO Q4H PRN PRN Reason: Headache/Fever or Pain Last Admin: 09/17/17 05:30 Dose: 650 mg Acetaminophen (Tylenol) 650 mg ID Q4H PRN PRN Reason: Headache/Fever or Pain Albuterol Sulfate (Proventil Hfa) 2 puff INH Q4H PRN PRN Reason: COUGH,WHEEZING Albuterol/Ipratropium (Duoneb) 3 ml NEB [id number] SCH Last Admin: 09/18/17 07:03 Dose: 3 ml Calcium Carbonate (Tums) 1,000 mg PO Q4H PRN PRN Reason: Heartburn or Indigestion Dextrose/Water (Dextrose 50%) 25 gm SLOW IVP PRN PRN PRN Reason: Hypoglycemia Enoxaparin Sodium (Lovenox) 40 mg SC 0900 [facility] Last Admin: 09/18/17 09:03 Dose: Not Given Fentanyl (Sublimaze) 25 mcg SLOW IVP Q4H PRN PRN Reason: Moderate to Severe Pain (6-10) Glucagon (Glucagon) 1 mg IM PRN PRN PRN Reason: Hypoglycemia Guaifenesin/Dextromethorphan (Mucinex Dm) 1 tab PO Q12HR [facility] Last Admin: 09/18/17 09:04 Dose: Not Given Hydralazine HCl (Apresoline) 10 mg SLOW IVP Q15MIN PRN PRN Reason: SBP Greater Than 170 Piperacillin Sod/Tazobactam (Sod 3.375 gm/ Sodium Chloride) 100 mls @ 200 mls/ hr IVPB 0300,0900,1500,2100 [facility] Last Admin: 09/18/17 09:20 Dose: 100 mls Vancomycin HCl 1.5 gm/ Sodium (Chloride) 300 mls @ 200 mls/hr IVPB 0400,1200, 2000 [facility] Last Admin: 09/18/17 04:13 Dose: 300 mls Dextrose/Water (D5w) 1,000 mls @ 0 mls/hr IV .Q0M PRN; As Directed PRN Reason: Hypoglycemia Insulin Human Lispro (Humalog) 0 units SC .MILD SLIDING SCALE PRN PRN Reason: Mild Correctional Scale Last Admin: 09/16/17 20:51 Dose: 4 unit Ketorolac Tromethamine (Toradol) 15 mg IVP 0500,1100,1700,2300 [facility] Stop: 09/21/17 11:01 Last Admin: 09/18/17 06:12 Dose: 15 mg Losartan Potassium (Cozaar) 50 mg PO MWF [facility] Last Admin: 09/18/17 05:27 Dose: 50 mg Miscellaneous Medication (Pharmacy To Dose) 1 each IVPB ONE PRN PRN Reason: DOSING Stop: 10/18/17 09:26 Mometasone Furoate/Formoterol Fumar (Dulera 100 Mcg/5 Mcg Inhaler) 2 puff INH BID-RT [facility] Last Admin: 09/18/17 07:02 Dose: 2 puff Ondansetron HCl (Zofran Odt) 4 mg PO Q6H PRN PRN Reason: Nausea/Vomiting Ondansetron HCl (Zofran) 4 mg IVP Q6H PRN PRN Reason: Nausea/Vomiting Prednisone (Prednisone) 40 mg PO QAM-WM [facility] Last Admin: 09/18/17 09:03 Dose: Not Given Sodium Chloride (Flush - Normal Saline) 10 ml IVF Q12HR [facility] Last Admin: 09/18/17 09:32 Dose: 10 ml MAR Reviewed: Yes Vital Signs: Vital Signs Temp 98.2 F 09/18/17 08:00 Pulse 100 09/18/17 08:00 Resp 14 09/18/17 08:00 BP 181/93 H 09/18/17 04:00 Pulse Ox 92 L 09/18/17 08:00 Intake & Output 09/17/17 09/18/17 09/18/17 18:59 06:59 18:59 Intake Total 1300 1220 Output Total 2400 1500 Balance -1100 -280 Intake: Intake, IV Amount 500 800 Oral 800 420 Output: Urine 2400 1500 Other: Voiding Method Bedside Commode Bedside Commode Bedside Commode # Unmeasured Voids 1 1 Progress Note: Exam - Physical Exam Constitutional: NAD HEENT: PERRLA, sclera anicteric Neck: no nodes, no JVD Cardiovascular: RRR, no significant murmur Focused Respiratory Location: decreased breath sounds: Left, dullness to percussion: Left Gastrointestinal: soft, non-tender Musculoskeletal: no edema Neurological: non-focal, moves all 4 limbs Lymphatic: no nodes Psychiatric: normal affect, A&O x 3 Skin: no rash Progress Note: Data - Labs Result Diagrams: 09/17/17 09:13 09/17/17 09:13 Lab results: Laboratory Results 09/16/17 09/16/17 09/16/17 11:26 16:56 20:40 WBC RBC Hgb Hct MCV MCH MCHC RDW Plt Count MPV Neutrophils % Lymphocytes % Monocytes % Eosinophils % Basophils % Neutrophils # Lymphocytes # Monocytes # Eosinophils # Basophils # Sodium Potassium Chloride Carbon Dioxide Anion Gap BUN Creatinine Estimated GFR (MDRD) Glucose POC Glucose 169 H 242 H 256 H Hemoglobin A1c Calcium Fluid Source Fluid Tube Number Fluid Color Fluid Clarity Fluid WBC Fluid RBC Fluid Seg Neutrophil % Fluid Lymphocytes % Non-Hematological % Fluid Triglycerides Fluid Comment Pleural pH Pleural Total Protein Pleural LDH Pleural Glucose Pleural Amylase Vancomycin Trough 09/17/17 09/17/17 09/17/17 03:10 03:10 06:23 WBC RBC Hgb Hct MCV MCH MCHC RDW Plt Count MPV Neutrophils % Lymphocytes % Monocytes % Eosinophils % Basophils % Neutrophils # Lymphocytes # Monocytes # Eosinophils # Basophils # Sodium Potassium Chloride Carbon Dioxide Anion Gap BUN Creatinine Estimated GFR (MDRD) Glucose POC Glucose 108 Hemoglobin A1c 5.3 Calcium Fluid Source Fluid Tube Number Fluid Color Fluid Clarity Fluid WBC Fluid RBC Fluid Seg Neutrophil % Fluid Lymphocytes % Non-Hematological % Fluid Triglycerides Fluid Comment Pleural pH Pleural Total Protein Pleural LDH Pleural Glucose Pleural Amylase Vancomycin Trough 20.4 09/17/17 09/17/17 09/17/17 09:13 09:13 11:28 WBC 16.9 H RBC 3.65 L Hgb 11.4 L Hct 36.1 MCV 98.9 MCH 31.4 H MCHC 31.7 L RDW 11.8 Plt Count 332 MPV 7.0 L Neutrophils % 81.5 H Lymphocytes % 9.7 L Monocytes % 7.3 Eosinophils % 1.4 Basophils % 0.1 Neutrophils # 13.8 H Lymphocytes # 1.6 Monocytes # 1.2 H Eosinophils # 0.2 Basophils # 0.0 Sodium 139 Potassium 3.4 L Chloride 104 Carbon Dioxide 23 Anion Gap 15 BUN 13 Creatinine 0.80 Estimated GFR (MDRD) 73 Glucose 104 POC Glucose 111 H Hemoglobin A1c Calcium 9.4 Fluid Source Fluid Tube Number Fluid Color Fluid Clarity Fluid WBC Fluid RBC Fluid Seg Neutrophil % Fluid Lymphocytes % Non-Hematological % Fluid Triglycerides Fluid Comment Pleural pH Pleural Total Protein Pleural LDH Pleural Glucose Pleural Amylase Vancomycin Trough 09/17/17 09/17/17 09/17/17 15:00 15:00 15:00 WBC RBC Hgb Hct MCV MCH MCHC RDW Plt Count MPV Neutrophils % Lymphocytes % Monocytes % Eosinophils % Basophils % Neutrophils # Lymphocytes # Monocytes # Eosinophils # Basophils # Sodium Potassium Chloride Carbon Dioxide Anion Gap BUN Creatinine Estimated GFR (MDRD) Glucose POC Glucose Hemoglobin A1c Calcium Fluid Source PLEURAL FLUID Fluid Tube Number EDTA Fluid Color Rankin Fluid Clarity Hazy H Fluid WBC 3200 Fluid RBC 405[address] Fluid Seg Neutrophil % 94 Fluid Lymphocytes % 3 Non-Hematological % 3 Fluid Triglycerides 48 Fluid Comment Note: Pleural pH 7.321 Pleural Total Protein 5.3 Pleural LDH 1014 Pleural Glucose Less than 20 Pleural Amylase Less than 30 Vancomycin Trough 09/17/17 09/17/17 09/18/17 17:02 20:24 06:27 WBC RBC Hgb Hct MCV MCH MCHC RDW Plt Count MPV Neutrophils % Lymphocytes % Monocytes % Eosinophils % Basophils % Neutrophils # Lymphocytes # Monocytes # Eosinophils # Basophils # Sodium Potassium Chloride Carbon Dioxide Anion Gap BUN Creatinine Estimated GFR (MDRD) Glucose POC Glucose 197 H 284 H 110 Hemoglobin A1c Calcium Fluid Source Fluid Tube Number Fluid Color Fluid Clarity Fluid WBC Fluid RBC Fluid Seg Neutrophil % Fluid Lymphocytes % Non-Hematological % Fluid Triglycerides Fluid Comment Pleural pH Pleural Total Protein Pleural LDH Pleural Glucose Pleural Amylase Vancomycin Trough Progress Note: A/P - Problems (1) Empyema of pleural space Current Visit: Yes Status: Acute Code(s): J86.9 - PYOTHORAX WITHOUT FISTULA - Plan Plan: decortication today Continue ABX
[2017-09-18 11:29] LABS: Vancomycin, Trough 16.8 ug/mL
[2017-09-18] MEDS ORDERED: Lidocaine 1% PF 5 ML VIAL ONE (12:31)
[2017-09-18] MEDS ORDERED: Metoprolol Tartrate 5 MG/5 ML VIAL ONE (12:31)
[2017-09-18] MEDS ORDERED: Dexamethasone 20 MG/5 ML VIAL ONE (12:31)
[2017-09-18] MEDS ORDERED: Ondansetron HCl/PF 4 MG/2 ML Vial ONE (12:31)
[2017-09-18] MEDS ORDERED: PHENYLEPHRINE-NS 100 MCG/ML 10 ML SYRINGE ONE (12:31)
[2017-09-18] MEDS ORDERED: PROPOFOL 200 MG/20 ML VIAL ONE (12:31)
[2017-09-18] MEDS ORDERED: Glycopyrrolate 0.2 MG/ML 5 ML SYRINGE ONE (12:31)
[2017-09-18] MEDS ORDERED: Fentanyl 100 MCG/2 ML VIAL ONE (14:19)
[2017-09-18] MEDS ORDERED: Albuterol Sulfate HFA (OR ONLY) ONE (14:19)
[2017-09-18] MEDS ORDERED: Phenylephrine 10 MG/NS 250 ML 0 ML ONE (14:19)
[2017-09-18] MEDS ORDERED: Midazolam HCl 2 mg/2 ml Vial ONE (15:08)
[2017-09-18] MEDS ORDERED: Ropivacaine 0.2% 550 ML 550 ML NERVE BLCK SCH (15:14)
[2017-09-18] MEDS ORDERED: Ketamine 50 MG/ML VIAL ONE (15:19)
--- NOTE | 2017-09-18 15:21 | ADD-PRG ---
ADDENDUM DATE OF SERVICE: 09/18/2017 This is an addendum to the note of Dr. Ricardo Gallo. Ms. Shay is resting quietly in bed. She underwent limited thoracentesis yesterday per Dr. Greene. The pleural fluid findings are consis tent with an exudate. Dr. Greene after seeing the patient yesterday and having a small volume thora centesis, recommended that the patient be seen by CV Surgery to consider decortication of the empyema . The patient is currently awaiting this procedure.
[2017-09-18] MEDS ORDERED: Ropivacaine 0.2% HCl/PF 20 ML ONE (17:11)
[2017-09-18] MEDS ORDERED: Insulin Regular 300 UNITS/3 ML VIAL SC PRN (18:03)
[2017-09-18] MEDS ORDERED: Promethazine HCl 25 MG/ML VIAL IM PRN ×2 (18:03→21:34)
[2017-09-18] MEDS ORDERED: Ondansetron HCl/PF 4 MG/2 ML Vial IVP PRN ×2 (18:03→21:34)
[2017-09-18] MEDS ORDERED: Lidocaine Viscous Sol 2% 15 ml UD Cup ONE (18:25)
[2017-09-18] MEDS ORDERED: Lidocaine 2% Jelly 5 ML TUBE ONE (18:26)
[2017-09-18] MEDS ORDERED: SUGAMMADEX SODIUM 500 MG/5 ML VIAL ONE (18:33)
[2017-09-18] MEDS: Sodium Chloride 0.9% 1,000 ML IV SCH (19:47)
[2017-09-18] MEDS: Labetalol HCl 100 MG/20 ML VIAL SLOW IVP PRN (20:26)
[2017-09-18] MEDS ORDERED: diphenhydrAMINE 50 MG/ML VIAL IM/IV PRN (21:34)
[2017-09-18] MEDS ORDERED: diphenhydrAMINE 25 MG CAP PO PRN (21:34)
[2017-09-18] MEDS ORDERED: Naloxone HCl 0.4 mg/ml Vial IV PRN (21:34)
[2017-09-18] MEDS ORDERED: Zolpidem Tartrate 5 MG TAB PO PRN (21:34)
--- NOTE | 2017-09-18 21:38 | RAD ---
PORTABLE CHEST 09/18/17 PROVIDED CLINICAL HISTORY: Status post thoracotomy. FINDINGS: Comparison is made with the study dated 09/17/17. The cardiac and mediastinal silhouette is unchanged in appearance with cardiac enlargement again noted. Interval reduction in the degree of left basilar pleural parenchymal opacity. Two left sided chest tubes are now noted. A left subclavian central line has been placed, the tip of which is projects in the expected location of the SVC. Probable subsegme ntal atelectatic change involves the right lung base. There is no evidence for pneumothorax. IMPRESSION: 1. Interval reduction in left basilar pleural parenchymal opacity. 2. Chest tube and central line placement as above. POS: CET
[2017-09-18] MEDS ORDERED: Morphine 2 MG/ML SYRINGE SLOW IVP PRN (21:41)
[2017-09-18] MEDS ORDERED: Morphine 4 MG/ML Carpuject SLOW IVP PRN (21:43)
[2017-09-18] MEDS ORDERED: Morphine 10 MG/ML CARPUJECT SLOW IVP PRN (21:44)
[2017-09-18] MEDS: Morphine CADD 1 MG/ML CADD IV PRN (22:44)
--- NOTE | 2017-09-18 23:58 | OP ---
DATE OF PROCEDURE: 09/18/2017 PROCEDURES PERFORMED: Left subclavian central line placement, muscle sparing left thoracotomy with t otal lung decortication, ON-Q PainBuster subpleural catheter placement x2, and fiberoptic bronchoscop y with left lung bronchial alveolar lavage. PREOPERATIVE DIAGNOSIS: Left thoracic empyema. POSTOPERATIVE DIAGNOSIS: Left thoracic empyema. SURGEON: Arash Cesar MD ANESTHESIA: General endotracheal anesthesia. INDICATIONS: The patient is a 62-year-old smoker who presented with progressive cough and pleuritic pain and shortness of breath. She was found to have a loculated pleural effusion that was not tapabl e. She is now taken to the operating room for decortication. FINDINGS: Subclavian catheter easily aspirated and flushed all 3 ports. Extensive coagulant at the left base and left lateral aspect of the lower lobe with some trapping rind, extensively bronchitic m ucosa in the left lung and bronchoscopy without any purulence or endobronchial masses. SPECIMENS: Pleural fluid coagulant and lavage fluid from the left lung sent for culture. BAL sent f or cytology, coagulum and rind sent for path. NARRATIVE REPORT: After informed consent was obtained, the patient was taken to the operating room a nd placed in supine position on the operating table. After the induction of general anesthesia, her left upper chest prepped and draped in sterile fashion. She was placed in Trendelenburg and a large- bore needle was used to cannulate the left subclavian vein by the Seldinger technique. A triple-lume n central line was placed easily, aspirated, and flushed from all 3 ports. It was secured to the ski n with suture and dressed. Patient then turned into the right lateral decubitus position and right c hest was prepped and draped in sterile fashion. Her left chest was prepped and draped in sterile fas hion. Incision was made transversely below the left scapula. Latissimus and serratus were mobilized and fifth intercostal space was entered. There were filmy adhesions of the lung to the chest wall m ediastinum that were easily taken down. There was extensive coagulum and the trapping rind primarily on the lower lobe laterally and at the base. This was teased away with specimens of pleural fluid a nd coagulant sent for microbiologic and pathologic studies. The lung was reinflated and examined for adequacy of decortication. A small amount of remaining entrapping rind was freed. A 36-Khmer ches t tubes with extra holes cut and were positioned anteriorly and posteriorly to the apex and a right-a ngle basilar tube was positioned with the tip at the posteromedial costophrenic sulcus ON-Q PainBuste r catheters were tunneled and deep to the parietal pleura superiorly, inferiorly from the posterior a pex of the intercostal incision. A 5 mL of 0.2% ropivacaine were bolused into each catheter. It was reapproximated with #2 Vicryl [id number] pericostal sutures. The latissimus and serratus were tacked back in their anatomic position with running Vicryl. A 19-Khmer bulb suctioned drain was debra ibb in the subcutaneous space, it was then developed and the subcu was closed in 2 layers of running Vicryl. Skin was closed with Vicryl subcuticular stitch, which was then reinforced with a running ny yulisa suture. Those wounds were dressed. The patient's double lumen endotracheal tube was exchanged f or single-lumen tube and a fiberoptic bronchoscope was lubricated and inserted through a device on the endotracheal tube. The daniel was sharp. The right-sided endobronchial tree was examined fi rst. The upper lobe, middle lobe, and lower lobe examined to the segmental bronchial level with no a bnormalities being appreciated. On the left side, it was immediately apparent that the left lung muc suman throughout its entirety. The major airways extensively bronchitic, no purulent material was aspi rated from either lobe or any of its segments. Lavage was performed in the upper lobe and the lower lobe and aspirated to send for microbiologic and cytologic studies. The scope was withdrawn and the patient was then taken to the intensive care unit in stable condition. Estimated blood loss during t he procedure was 100 mL. Instrument, needle, and sponge counts were correct.
[2017-09-19] MEDS: Vancomycin HCl 1.5 GM in Sodium Chloride 0.9% 250 ML 300 ML IVPB SCH ×2 (04:03→11:53)
[2017-09-19] MEDS: Piperacillin/Tazobactam 3.375 GM in Sodium Chloride 0.9% 100 ML IVPB SCH ×4 (04:03→21:34)
[2017-09-19] MEDS: Sodium Chloride 0.9% 1,000 ML IV SCH ×3 (04:15→16:58)
[2017-09-19] MEDS: Ketorolac Tromethamine 30 MG/ML VIAL IVP SCH (05:23)
[2017-09-19 06:26] LABS: Anion Gap 15 mmol/L (10-20); BUN (Urea Nitrogen) 14 mg/dL (9.8-20.1); Calc. Creatinine Clearance 77 mL/min (70-130); Calcium 8.7 mg/dL (7.8-10.44); Carbon Dioxide 25 mmol/L (23-31); Chloride 110 mmol/L (98-107); Estimated GFR-MDRD 44; Glucose 115 mg/dL (80-115); Potassium 4.1 mmol/L (3.5-5.1); Sodium 146 mmol/L (136-145)
[2017-09-19 06:48] LABS: #Eosinphils 0.1 thou/uL (0.0-0.7); #Lymphocytes 0.9 thou/uL (1.20-3.40); #Monocytes 1.3 thou/uL (0.11-0.59); #Neutrophils 13.4 thou/uL (1.40-6.50); %Eosinophils 0.3 % (0.0-10.0); %Lymphocytes 5.8 % (21.0-51.0); %Monocytes 8.1 % (0.0-10.0); %Neutrophils 85.8 % (42.0-75.0); Hemoglobin 11.5 g/dL (12.0-16.0); Mean Corpuscular HGB CONC 31.7 g/dL (32.0-36.0); Mean Platelet Volume 6.8 fL (7.4-10.4); Platelet Count 407 thou/uL (130-400); Red Blood Cell (RBC) Count 3.58 mill/uL (4.20-5.40); White Blood Cell (WBC) Count 15.6 thou/uL (4.8-10.8)
--- NOTE | 2017-09-19 07:26 | PDOC.PULPN ---
Progress Note: Subj/Obj - Subjective Date: 09/19/17 Time: 07:24 Narrative: Sore. 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 Constitutional: weakness Cardiovascular: chest pain - Objective Allergies/Adverse Reactions: Allergies Allergy/AdvReac Type Severity Reaction Status Date / Time codeine Allergy Verified 09/16/17 06:05 Medications: Current Medications Acetaminophen (Tylenol) 650 mg PO Q4H PRN PRN Reason: Headache/Fever or Pain Last Admin: 09/17/17 05:30 Dose: 650 mg Acetaminophen (Tylenol) 650 mg [place] Q4H PRN PRN Reason: Headache/Fever or Pain Albuterol Sulfate (Proventil Hfa) 2 puff INH Q4H PRN PRN Reason: COUGH,WHEEZING Albuterol/Ipratropium (Duoneb) 3 ml NEB [id number] Last Admin: 09/18/17 20:11 Dose: 3 ml Albuterol/Ipratropium (Duoneb) 3 ml NEB [id number] PRN PRN Reason: Wheezing Calcium Carbonate (Tums) 1,000 mg PO Q4H PRN PRN Reason: Heartburn or Indigestion Dextrose/Water (Dextrose 50%) 25 gm SLOW IVP PRN PRN PRN Reason: Hypoglycemia Diphenhydramine HCl (Benadryl) 25 mg IM/IV Q3H PRN PRN Reason: Itching Diphenhydramine HCl (Benadryl) 25 mg PO Q3H PRN PRN Reason: Itching Enoxaparin Sodium (Lovenox) 40 mg SC 0900 [facility] Last Admin: 09/18/17 09:03 Dose: Not Given Glucagon (Glucagon) 1 mg IM PRN PRN PRN Reason: Hypoglycemia Guaifenesin/Dextromethorphan (Mucinex Dm) 1 tab PO Q12HR [facility] Last Admin: 09/18/17 22:50 Dose: 1 tab Piperacillin Sod/Tazobactam (Sod 3.375 gm/ Sodium Chloride) 100 mls @ 200 mls/ hr IVPB 0300,0900,1500,2100 [facility] Last Admin: 09/19/17 04:03 Dose: 100 mls Vancomycin HCl 1.5 gm/ Sodium (Chloride) 300 mls @ 200 mls/hr IVPB 0400,1200, 2000 [facility] Last Admin: 09/19/17 04:03 Dose: 300 mls Dextrose/Water (D5w) 1,000 mls @ 0 mls/hr IV .Q0M PRN; As Directed PRN Reason: Hypoglycemia Ropivacaine (Ropivacaine 0.2% 550 Ml) 550 mls @ 0 mls/hr NERVE BLCK INF JOSE ROBERTO PRN Reason: As Directed Sodium Chloride (Normal Saline 0.9%) 1,000 mls @ 100 mls/hr IV .Q10H [facility] Last Admin: 09/19/17 04:15 Dose: 1,000 mls Insulin Human Lispro (Humalog) 0 units SC .MILD SLIDING SCALE PRN PRN Reason: Mild Correctional Scale Last Admin: 09/16/17 20:51 Dose: 4 unit Insulin Human Regular (Humulin R) 0 units SC .AGGRESSIVE SLIDING PRN PRN Reason: Aggressive Correctional Scale Ketorolac Tromethamine (Toradol) 15 mg IVP 0500,1100,1700,2300 [facility] Stop: 09/21/17 11:01 Last Admin: 09/19/17 05:23 Dose: 15 mg Labetalol HCl (Normodyne) 20 mg SLOW IVP Q2H PRN PRN Reason: SBP Greater Than 170 Last Admin: 09/18/17 20:26 Dose: 20 mg Losartan Potassium (Cozaar) 50 mg PO MWF [facility] Last Admin: 09/18/17 05:27 Dose: 50 mg Miscellaneous Medication (Pharmacy To Dose) 1 each IVPB ONE PRN PRN Reason: DOSING Stop: 10/18/17 09:26 Mometasone Furoate/Formoterol Fumar (Dulera 100 Mcg/5 Mcg Inhaler) 2 puff INH BID-RT [facility] Last Admin: 09/18/17 20:13 Dose: 2 puff Morphine Sulfate (Morphine Cadd) 0 mg IV INF PRN PRN Reason: Pain Last Admin: 09/18/17 22:44 Dose: 100 mg Morphine Sulfate (Morphine) 2 mg SLOW IVP Q30M PRN PRN Reason: Mild Pain (1-3) Morphine Sulfate (Morphine) 4 mg SLOW IVP Q30M PRN PRN Reason: Moderate Pain (4-6) Morphine Sulfate (Morphine) 5 mg SLOW IVP Q30M PRN PRN Reason: Severe Pain (7-10) Naloxone HCl (Narcan) 0.2 mg IV Q5MIN PRN PRN Reason: RR <8 or pt obtun/unarousable Ondansetron HCl (Zofran Odt) 4 mg PO Q6H PRN PRN Reason: Nausea/Vomiting Ondansetron HCl (Zofran) 4 mg IVP Q6H PRN PRN Reason: Nausea/Vomiting Prednisone (Prednisone) 40 mg PO QAM-WM [facility] Last Admin: 09/18/17 09:03 Dose: Not Given Promethazine HCl (Phenergan) 12.5 mg IM Q4H PRN PRN Reason: Nausea/Vomiting Sodium Chloride (Flush - Normal Saline) 10 ml IVF Q12HR [facility] Last Admin: 09/18/17 22:04 Dose: 10 ml Zolpidem Tartrate (Ambien) 5 mg PO HSPRN PRN PRN Reason: Insomnia OCT Reviewed: Yes Vital Signs: Vital Signs Temp 98.3 F 09/19/17 04:00 Pulse 99 09/18/17 21:30 Resp 20 09/18/17 21:30 BP 180/102 H 09/18/17 20:26 Pulse Ox 92 L 09/19/17 02:01 Intake & Output 09/18/17 09/19/17 09/19/17 18:59 06:59 18:59 Intake Total 1479 Output Total 1040 Balance 439 Intake: Intake, IV Amount 1479 Sodium Chloride 0.9% 1, 1041 000 ml @ 100 mls/hr IV . Q10H [facility] Rx#:[id number] Vancomycin HCl 1.5 gm In 438 Sodium Chloride 0.9% 250 ML 300 ml @ 200 mls/hr IVPB 0400,1200,2000 [facility] Rx#:[id number] Output: Chest Tube Drainage 220 09/[address] 50 09/[address] X2 170 Drainage 20 09/18 LT Chest 19Fr LAURIE 20 Drain Output, [place] 800 Other: Voiding Method Bedside Commode Indwelling Catheter Progress Note: Exam - Physical Exam Constitutional: NAD HEENT: PERRLA, sclera anicteric Neck: no nodes, no JVD Cardiovascular: RRR Focused Respiratory Location: decreased breath sounds: Left (2 chest tubes on L. No air leak) Gastrointestinal: soft, non-tender, no distention Musculoskeletal: no edema Neurological: non-focal, normal sensation, moves all 4 limbs Lymphatic: no nodes Psychiatric: normal affect, A&O x 3 Skin: no rash Progress Note: Data - Labs Result Diagrams: 09/19/17 06:30 09/19/17 05:26 Lab results: Laboratory Results 09/17/17 09/17/17 09/17/17 03:10 09:13 09:13 WBC 16.9 H RBC 3.65 L Hgb 11.4 L Hct 36.1 MCV 98.9 MCH 31.4 H MCHC 31.7 L RDW 11.8 Plt Count 332 MPV 7.0 L Neutrophils % 81.5 H Lymphocytes % 9.7 L Monocytes % 7.3 Eosinophils % 1.4 Basophils % 0.1 Neutrophils # 13.8 H Lymphocytes # 1.6 Monocytes # 1.2 H Eosinophils # 0.2 Basophils # 0.0 Sodium 139 Potassium 3.4 L Chloride 104 Carbon Dioxide 23 Anion Gap 15 BUN 13 Creatinine 0.80 Estimated GFR (MDRD) 73 Glucose 104 POC Glucose Hemoglobin A1c 5.3 Calcium 9.4 Fluid Source Fluid Tube Number Fluid Color Fluid Clarity Fluid WBC Fluid RBC Fluid Seg Neutrophil % Fluid Lymphocytes % Fluid Diff Path Review Non-Hematological % Fluid Triglycerides Fluid Comment Pleural pH Pleural Total Protein Pleural LDH Pleural Glucose Pleural Amylase Vancomycin Trough 09/17/17 09/17/17 09/17/17 11:28 15:00 15:00 WBC RBC Hgb Hct MCV MCH MCHC RDW Plt Count MPV Neutrophils % Lymphocytes % Monocytes % Eosinophils % Basophils % Neutrophils # Lymphocytes # Monocytes # Eosinophils # Basophils # Sodium Potassium Chloride Carbon Dioxide Anion Gap BUN Creatinine Estimated GFR (MDRD) Glucose POC Glucose 111 H Hemoglobin A1c Calcium Fluid Source Fluid Tube Number Fluid Color Fluid Clarity Fluid WBC Fluid RBC Fluid Seg Neutrophil % Fluid Lymphocytes % Fluid Diff Path Review Non-Hematological % Fluid Triglycerides 48 Fluid Comment Pleural pH 7.321 Pleural Total Protein 5.3 Pleural LDH 1014 Pleural Glucose Less than 20 Pleural Amylase Less than 30 Vancomycin Trough 09/17/17 09/17/17 09/17/17 15:00 17:02 20:24 WBC RBC Hgb Hct MCV MCH MCHC RDW Plt Count MPV Neutrophils % Lymphocytes % Monocytes % Eosinophils % Basophils % Neutrophils # Lymphocytes # Monocytes # Eosinophils # Basophils # Sodium Potassium Chloride Carbon Dioxide Anion Gap BUN Creatinine Estimated GFR (MDRD) Glucose POC Glucose 197 H 284 H Hemoglobin A1c Calcium Fluid Source PLEURAL FLUID Fluid Tube Number EDTA Fluid Color [place] Fluid Clarity Hazy H Fluid WBC 3200 Fluid RBC 77917 Fluid Seg Neutrophil % 94 Fluid Lymphocytes % 3 Fluid Diff Path Review Non-Hematological % 3 Fluid Triglycerides Fluid Comment Note: Pleural pH Pleural Total Protein Pleural LDH Pleural Glucose Pleural Amylase Vancomycin Trough 09/18/17 09/18/17 09/18/17 06:27 10:50 11:16 WBC RBC Hgb Hct MCV MCH MCHC RDW Plt Count MPV Neutrophils % Lymphocytes % Monocytes % Eosinophils % Basophils % Neutrophils # Lymphocytes # Monocytes # Eosinophils # Basophils # Sodium Potassium Chloride Carbon Dioxide Anion Gap BUN Creatinine Estimated GFR (MDRD) Glucose POC Glucose 110 119 H Hemoglobin A1c Calcium Fluid Source Fluid Tube Number Fluid Color Fluid Clarity Fluid WBC Fluid RBC Fluid Seg Neutrophil % Fluid Lymphocytes % Fluid Diff Path Review Non-Hematological % Fluid Triglycerides Fluid Comment Pleural pH Pleural Total Protein Pleural LDH Pleural Glucose Pleural Amylase Vancomycin Trough 16.8 09/18/17 09/19/17 09/19/17 22:17 05:24 05:26 WBC RBC Hgb Hct MCV MCH MCHC RDW Plt Count MPV Neutrophils % Lymphocytes % Monocytes % Eosinophils % Basophils % Neutrophils # Lymphocytes # Monocytes # Eosinophils # Basophils # Sodium 146 H Potassium 4.1 Chloride 110 H Carbon Dioxide 25 Anion Gap 15 BUN 14 Creatinine 1.23 H Estimated GFR (MDRD) 44 Glucose 115 POC Glucose 146 H 117 H Hemoglobin A1c Calcium 8.7 Fluid Source Fluid Tube Number Fluid Color Fluid Clarity Fluid WBC Fluid RBC Fluid Seg Neutrophil % Fluid Lymphocytes % Fluid Diff Path Review Non-Hematological % Fluid Triglycerides Fluid Comment Pleural pH Pleural Total Protein Pleural LDH Pleural Glucose Pleural Amylase Vancomycin Trough 09/19/17 06:30 WBC 15.6 H RBC 3.58 L Hgb 11.5 L Hct 36.2 MCV 101.0 H MCH 32.0 H MCHC 31.7 L RDW 12.0 Plt Count 407 H MPV 6.8 L Neutrophils % 85.8 H Lymphocytes % 5.8 L Monocytes % 8.1 Eosinophils % 0.3 Basophils % 0.0 Neutrophils # 13.4 H Lymphocytes # 0.9 L Monocytes # 1.3 H Eosinophils # 0.1 Basophils # 0.0 Sodium Potassium Chloride Carbon Dioxide Anion Gap BUN Creatinine Estimated GFR (MDRD) Glucose POC Glucose Hemoglobin A1c Calcium Fluid Source Fluid Tube Number Fluid Color Fluid Clarity Fluid WBC Fluid RBC Fluid Seg Neutrophil % Fluid Lymphocytes % Fluid Diff Path Review Non-Hematological % Fluid Triglycerides Fluid Comment Pleural pH Pleural Total Protein Pleural LDH Pleural Glucose Pleural Amylase Vancomycin Trough - Radiology Interpretation CT scan - chest Status: image reviewed by me (effusion evacuated on L. 2 chest tubes) Progress Note: A/P - Problems (1) Empyema of pleural space Current Visit: Yes Status: Acute Code(s): J86.9 - PYOTHORAX WITHOUT FISTULA - Plan Plan: Remain in CCU until cleared by Thoracic Surgery to go to floor Continue IV ABX and pain control
--- NOTE | 2017-09-19 08:15 | PDOC.FM ---
- Subjective Subjective: Patient states she is in a lot of pain. 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 She describes most of her pain in her left shoulder and left scapular region. She denies chest pain, sob, n/v/d, fever, chills, or cough. She states that the pain is under good control, but is using the pain medication as directed. She has no other complaints today. - Objective Vital Signs & Weight: Vital Signs (12 hours) Temp Pulse Resp BP Pulse Ox 09/19/17 04:00 98.3 F 09/19/17 02:01 92 L 09/19/17 00:00 98.5 F 09/18/17 21:30 98.4 F 99 20 96 09/18/17 20:26 102 H 180/102 H Weight Weight 101.605 kg Most Recent Monitor Data Heart Rate from ECG 102 NIBP 130/90 NIBP BP-Mean 97 Respiration from ECG 12 SpO2 91 I&O: 09/18/17 09/19/17 09/20/17 06:59 06:59 06:59 Intake Total 2520 1479 19.7 Output Total 3900 1040 Balance -1380 439 19.7 Result Diagrams: 09/19/17 06:30 09/19/17 05:26 Phys Exam - Physical Examination HEENT: PERRLA, moist MMs Neck: no nodes Respiratory: no wheezing diminished on L Cardiovascular: RRR, no significant murmur Gastrointestinal: soft, non-tender, no distention, positive bowel sounds Musculoskeletal: no edema, pulses present Neurological: non-focal, normal sensation, moves all 4 limbs Lymphatic: no nodes Psychiatric: normal affect, A&O x 3 Skin: no rash Dx/Plan (1) Sepsis due to pneumonia Code(s): J18.9 - PNEUMONIA, UNSPECIFIED ORGANISM; A41.9 - SEPSIS, UNSPECIFIED ORGANISM Status: Acute (2) COPD exacerbation Code(s): J44.1 - CHRONIC OBSTRUCTIVE PULMONARY DISEASE W (ACUTE) EXACERBATION Status: Acute (3) Pleural effusion Code(s): J90 - PLEURAL EFFUSION, NOT ELSEWHERE CLASSIFIED Status: Acute (4) HTN (hypertension) Code(s): I10 - ESSENTIAL (PRIMARY) HYPERTENSION Status: Acute (5) DM2 (diabetes mellitus, type 2) Status: Acute (6) Hyponatremia Code(s): E87.1 - HYPO-OSMOLALITY AND HYPONATREMIA Status: Acute - Plan Plan: 1. Sepsis - Likely resolved - Continue Antibiotics - Continue IVF - Cultures negative 2. COPD exacerbation - Continue steroids - Continue inhalers - Will wean O2 use 3. Left Sided pleural effusion vs. empyema - Repeat CXR shows worsening opacification of L side - Consulted Pulmonology, Appreciate Dr. Greene's recs - s/p thoracentesis with sample sent for analysis - Cytology points to infectious process - s/p decortication, will remain in CCU until cleared by CV surgery - Continue post op pain control 4. HTN - Continue home meds - Monitor BP 5. DM2 - Accuchecks - Not currently medicated - Will check A1C Disposition: Stable, Will await surgery results.
[2017-09-19] MEDS: Mometasone/Formoterol 120 PUFF INHALER INH SCH ×2 (08:16→18:31)
--- NOTE | 2017-09-19 08:37 | RAD ---
CHEST ONE VIEW: Comparison: 09-18-17 History: Status post thoracotomy. FINDINGS: Stable left sided central venous catheter, three left sided chest tubes. Stable configuration of the cardiac silhouette. Stable pleural and parenchymal changes. No pneumothorax. IMPRESSION: Stable post-surgical change. POS: DEMETRIO
[2017-09-19] MEDS: predniSONE 20 MG TAB PO SCH (09:07)
[2017-09-19] MEDS: Enoxaparin Sodium 40 MG/0.4 ML SYRINGE SC SCH (09:07)
[2017-09-19] MEDS: guaiFENesin/DM ER PO SCH ×2 (09:07→21:34)
[2017-09-19 11:42] LABS: Vancomycin, Trough 35.5 ug/mL
[2017-09-19] MEDS: Acetaminophen 1,000 MG in Premix Bag 1 BAG IVPB SCH ×3 (11:50→23:59)
--- NOTE | 2017-09-19 12:19 | PRG ---
DATE OF SERVICE: 09/19/2017 Ms. Shay is currently postoperative day 1 status post decortication. She is resting comfortab ly. She is not short of breath. She is not having significant chest discomfort. Her vital signs ar e stable. CBC this morning shows Hemoglobin 11.5 with an hematocrit 36.2, an MCV of 101. Chemistr ies: Sodium is 146, potassium 4.1, chloride 110, bicarbonate 25, BUN 14, creatinine 1.23. Blood glu cose 117. ASSESSMENT: Postoperative day 1, stable. She can transfer to a regular floor when cleared by ЮЛИЯ pacheco.
[2017-09-20] MEDS: Sodium Chloride 0.9% 1,000 ML IV SCH ×2 (01:45→11:15)
[2017-09-20] MEDS: Piperacillin/Tazobactam 3.375 GM in Sodium Chloride 0.9% 100 ML IVPB SCH ×4 (02:51→21:17)
[2017-09-20 05:57] LABS: #Eosinphils 0.2 thou/uL (0.0-0.7); #Lymphocytes 1.3 thou/uL (1.20-3.40); #Monocytes 1.2 thou/uL (0.11-0.59); #Neutrophils 10.5 thou/uL (1.40-6.50); %Basophils 0.3 % (0.0-1.0); %Eosinophils 1.9 % (0.0-10.0); %Lymphocytes 9.7 % (21.0-51.0); %Monocytes 9.3 % (0.0-10.0); %Neutrophils 78.8 % (42.0-75.0); Hemoglobin 11.5 g/dL (12.0-16.0); Mean Corpuscular HGB CONC 31.8 g/dL (32.0-36.0); Mean Corpuscular Hemoglobin 32.2 pg (27.0-31.0); Platelet Count 405 thou/uL (130-400); RBC Distribution Width 12.1 % (11.5-14.5); Red Blood Cell (RBC) Count 3.58 mill/uL (4.20-5.40); White Blood Cell (WBC) Count 13.4 thou/uL (4.8-10.8)
[2017-09-20 06:01] LABS: Anion Gap 13 mmol/L (10-20); BUN (Urea Nitrogen) 15 mg/dL (9.8-20.1); Calc. Creatinine Clearance 72 mL/min (70-130); Calcium 9.4 mg/dL (7.8-10.44); Carbon Dioxide 26 mmol/L (23-31); Chloride 108 mmol/L (98-107); Estimated GFR-MDRD 41; Glucose 90 mg/dL (80-115); Potassium 3.8 mmol/L (3.5-5.1); Sodium 143 mmol/L (136-145)
[2017-09-20] MEDS: Acetaminophen 1,000 MG in Premix Bag 1 BAG IVPB SCH (06:14)
--- NOTE | 2017-09-20 06:14 | PDOC.FM ---
- Subjective Subjective: Patient states she had a decent night. She states she is still in quite a bit of pain. Her only other complaint is with her bladder. She had a velarde removed and then was not able to urinate on her own. She had to be straight cathed with approximately 1400ml output. The night nurse has stated some concern over the patient's anxiety over the situation at this time as well. She does note that her breathing is better and so is her cough. She denies any chest pain, fevers, chills, n/v/d. No other concerns this morning. - Objective Vital Signs & Weight: Vital Signs (12 hours) Temp Pulse Resp Pulse Ox 09/20/17 04:00 97.9 F 09/20/17 00:00 97.8 F 09/19/17 20:00 97.9 F 96 20 92 L 09/19/17 18:21 102 H 20 91 L Weight Weight 101.605 kg Most Recent Monitor Data Heart Rate from ECG 108 NIBP 157/98 NIBP BP-Mean 120 Respiration from ECG 13 SpO2 92 I&O: 09/18/17 09/19/17 09/20/17 06:59 06:59 06:59 Intake Total 2520 1479 4354.7 Output Total 3900 1040 3205 Balance -7170 714 4064.7 Result Diagrams: 09/20/17 05:15 09/20/17 05:15 Phys Exam - Physical Examination Constitutional: NAD HEENT: PERRLA Lips are chapped Neck: no nodes Respiratory: no wheezing, clear to auscultation bilateral Cardiovascular: RRR, no significant murmur Gastrointestinal: soft, non-tender, no distention, positive bowel sounds Musculoskeletal: no edema, pulses present Neurological: non-focal, normal sensation, moves all 4 limbs limited on Left side due to pain Lymphatic: no nodes Psychiatric: normal affect, A&O x 3 Skin: no rash Dx/Plan (1) Sepsis due to pneumonia Code(s): J18.9 - PNEUMONIA, UNSPECIFIED ORGANISM; A41.9 - SEPSIS, UNSPECIFIED ORGANISM Status: Acute (2) COPD exacerbation Code(s): J44.1 - CHRONIC OBSTRUCTIVE PULMONARY DISEASE W (ACUTE) EXACERBATION Status: Acute (3) Pleural effusion Code(s): J90 - PLEURAL EFFUSION, NOT ELSEWHERE CLASSIFIED Status: Resolved (4) HTN (hypertension) Code(s): I10 - ESSENTIAL (PRIMARY) HYPERTENSION Status: Acute (5) DM2 (diabetes mellitus, type 2) Status: Acute (6) JOHN (acute kidney injury) Code(s): N17.9 - ACUTE KIDNEY FAILURE, UNSPECIFIED Status: Acute (7) Empyema of pleural space Code(s): J86.9 - PYOTHORAX WITHOUT FISTULA Status: Acute - Plan Plan: 1. Sepsis - Likely resolved - Continue Antibiotics - Continue IVF - Cultures negative 2. COPD exacerbation - Continue steroids - Continue inhalers - Will wean O2 use 3. Empyema - Repeat CXR shows worsening opacification of L side - Consulted Pulmonology, Appreciate Dr. Greene's recs - s/p thoracentesis with sample sent for analysis - Cytology points to infectious process - s/p decortication, will remain in CCU until cleared by CV surgery - Continue post op pain control 4. HTN - Continue home meds - Monitor BP 5. DM2 - Accuchecks - Not currently medicated - Will check A1C 6. JOHN - Continue to monitor with BMP - Likely secondary to elevated Vancomycin level, Pharmacy currently dosing - Will hold nephrotoxic drugs at this time. - IVF Disposition: Stable, Should be ready for transfer to floor today. Will await surgery recs.
[2017-09-20] MEDS: Mometasone/Formoterol 120 PUFF INHALER INH SCH ×2 (06:49→18:18)
--- NOTE | 2017-09-20 07:30 | PDOC.PULCC ---
CCU Progress Note: Subj/Obj - Subjective Date: 09/20/17 Time: 07:29 Narrative: Feels better. Has not been able to get up yet. - ROS Review of Systems: shortness of breath - Objective Allergies/Adverse Reactions: Allergies Allergy/AdvReac Type Severity Reaction Status Date / Time codeine Allergy Verified 09/16/17 06:05 Medications: Current Medications Acetaminophen (Tylenol) 1,000 mg PO Q6HR JOSE ROBERTO Stop: 09/21/17 06:01 Acetaminophen (Tylenol) 650 mg PO Q4H PRN PRN Reason: Headache/Fever or Pain Acetaminophen (Tylenol) 650 mg MI Q4H PRN PRN Reason: Headache/Fever or Pain Albuterol Sulfate (Proventil Hfa) 2 puff INH Q4H PRN PRN Reason: COUGH,WHEEZING Albuterol/Ipratropium (Duoneb) 3 ml NEB [id number] SCH Last Admin: 09/20/17 06:43 Dose: 3 ml Albuterol/Ipratropium (Duoneb) 3 ml NEB [id number] PRN PRN Reason: Wheezing Calcium Carbonate (Tums) 1,000 mg PO Q4H PRN PRN Reason: Heartburn or Indigestion Dextrose/Water (Dextrose 50%) 25 gm SLOW IVP PRN PRN PRN Reason: Hypoglycemia Diphenhydramine HCl (Benadryl) 25 mg IM/IV Q3H PRN PRN Reason: Itching Diphenhydramine HCl (Benadryl) 25 mg PO Q3H PRN PRN Reason: Itching Enoxaparin Sodium (Lovenox) 40 mg SC 0900 [facility] Last Admin: 09/19/17 09:07 Dose: 40 mg Glucagon (Glucagon) 1 mg IM PRN PRN PRN Reason: Hypoglycemia Guaifenesin/Dextromethorphan (Mucinex Dm) 1 tab PO Q12HR [facility] Last Admin: 09/19/17 21:34 Dose: 1 tab Piperacillin Sod/Tazobactam (Sod 3.375 gm/ Sodium Chloride) 100 mls @ 200 mls/ hr IVPB 0300,0900,1500,2100 [facility] Last Admin: 09/20/17 02:51 Dose: 100 mls Dextrose/Water (D5w) 1,000 mls @ 0 mls/hr IV .Q0M PRN; As Directed PRN Reason: Hypoglycemia Ropivacaine (Ropivacaine 0.2% 550 Ml) 550 mls @ 0 mls/hr NERVE BLCK INF [facility] PRN Reason: As Directed Sodium Chloride (Normal Saline 0.9%) 1,000 mls @ 100 mls/hr IV .Q10H [facility] Last Admin: 09/20/17 01:45 Dose: Not Given Vancomycin HCl 1.25 gm/ Sodium (Chloride) 250 mls @ 166.667 mls/hr IVPB .PENDING LEVEL [facility] Insulin Human Lispro (Humalog) 0 units SC .MILD SLIDING SCALE PRN PRN Reason: Mild Correctional Scale Last Admin: 09/16/17 20:51 Dose: 4 unit Insulin Human Regular (Humulin R) 0 units SC .AGGRESSIVE SLIDING PRN PRN Reason: Aggressive Correctional Scale Labetalol HCl (Normodyne) 20 mg SLOW IVP Q2H PRN PRN Reason: SBP Greater Than 170 Last Admin: 09/18/17 20:26 Dose: 20 mg Losartan Potassium (Cozaar) 50 mg PO [facility] Last Admin: 09/18/17 05:27 Dose: 50 mg Miscellaneous Medication (Pharmacy To Dose) 1 each IVPB ONE PRN PRN Reason: DOSING Stop: 10/18/17 09:26 Mometasone Furoate/Formoterol Fumar (Dulera 100 Mcg/5 Mcg Inhaler) 2 puff INH BID-RT [facility] Last Admin: 09/20/17 06:49 Dose: 2 puff Morphine Sulfate (Morphine Cadd) 0 mg IV INF PRN PRN Reason: Pain Last Admin: 09/18/17 22:44 Dose: 100 mg Morphine Sulfate (Morphine) 2 mg SLOW IVP Q30M PRN PRN Reason: Mild Pain (1-3) Morphine Sulfate (Morphine) 4 mg SLOW IVP Q30M PRN PRN Reason: Moderate Pain (4-6) Morphine Sulfate (Morphine) 5 mg SLOW IVP Q30M PRN PRN Reason: Severe Pain (7-10) Naloxone HCl (Narcan) 0.2 mg IV Q5MIN PRN PRN Reason: RR <8 or pt obtun/unarousable Ondansetron HCl (Zofran Odt) 4 mg PO Q6H PRN PRN Reason: Nausea/Vomiting Ondansetron HCl (Zofran) 4 mg IVP Q6H PRN PRN Reason: Nausea/Vomiting Prednisone (Prednisone) 20 mg PO QAM-WM [facility] Last Admin: 09/19/17 09:07 Dose: 20 mg Promethazine HCl (Phenergan) 12.5 mg IM Q4H PRN PRN Reason: Nausea/Vomiting Sodium Chloride (Flush - Normal Saline) 10 ml IVF Q12HR [facility] Last Admin: 09/19/17 21:35 Dose: 10 ml Zolpidem Tartrate (Ambien) 5 mg PO HSPRN PRN PRN Reason: Insomnia MAR Reviewed: Yes Vital Signs and I&O: Vital Signs Temp 97.9 F 09/20/17 04:00 Pulse 92 09/20/17 06:43 Resp 15 09/20/17 06:43 BP 180/102 H 09/18/17 20:26 Pulse Ox 92 L 09/20/17 06:46 Intake & Output 09/19/17 09/20/17 09/20/17 18:59 06:59 18:59 Intake Total 2460.7 1894 Output Total 1300 1905 Balance 1160.7 -11 Intake: Intake, IV Amount 1750.7 1174 Acetaminophen 1,000 mg In 200 Premix Bag 1 bag @ 400 mls/hr IVPB Q6HR [facility] Rx#: [id number] Morphine CADD See Dose 19.7 Instructions IV INF PRN Rx#:[id number] Piperacillin/Tazobactam 3 200 .375 gm In Sodium Chloride 0.9% 100 ml @ 200 mls/hr IVPB 0300,0900 ,1500,2100 [facility] Rx#: [id number] Sodium Chloride 0.9% 1, 1731 774 000 ml @ 100 mls/hr IV . Q10H [facility] Rx#:[id number] Oral 710 720 Output: Chest Tube Drainage 80 120 09/[address] 10 40 09/[address] X2 70 80 Drainage 10 09/18 LT Chest 19Fr LAURIE 10 Drain Urine 0 Output, Mckeon 1220 1775 Other: Voiding Method Indwelling Catheter Bedside Commode Vent Setting: on 5L NC, sats 92% CCU Progress Note: Exam - Physical Exam Constitutional: NAD HEENT: PERRLA, sclera anicteric Neck: no nodes, no JVD Cardiovascular: RRR Focused Respiratory Location: decreased breath sounds: Left -: right side clear Gastrointestinal: soft, non-tender Musculoskeletal: no edema Neurological: non-focal Lymphatic: no nodes Psychiatric: normal affect, A&O x 3 Skin: no rash CCU Progress Note: Data - Labs Result Diagrams: 09/20/17 05:15 09/20/17 05:15 Lab results: Laboratory Results 09/17/17 09/18/17 09/18/17 15:00 10:50 11:16 WBC RBC Hgb Hct MCV MCH MCHC RDW Plt Count MPV Neutrophils % Lymphocytes % Monocytes % Eosinophils % Basophils % Neutrophils # Lymphocytes # Monocytes # Eosinophils # Basophils # Sodium Potassium Chloride Carbon Dioxide Anion Gap BUN Creatinine Estimated GFR (MDRD) Glucose POC Glucose 119 H Calcium Fluid Diff Path Review Vancomycin Trough 16.8 09/18/17 09/19/17 09/19/17 22:17 05:24 05:26 WBC RBC Hgb Hct MCV MCH MCHC RDW Plt Count MPV Neutrophils % Lymphocytes % Monocytes % Eosinophils % Basophils % Neutrophils # Lymphocytes # Monocytes # Eosinophils # Basophils # Sodium 146 H Potassium 4.1 Chloride 110 H Carbon Dioxide 25 Anion Gap 15 BUN 14 Creatinine 1.23 H Estimated GFR (MDRD) 44 Glucose 115 POC Glucose 146 H 117 H Calcium 8.7 Fluid Diff Path Review Vancomycin Trough 09/19/17 09/19/17 09/19/17 06:30 11:01 11:04 WBC 15.6 H RBC 3.58 L Hgb 11.5 L Hct 36.2 MCV 101.0 H MCH 32.0 H MCHC 31.7 L RDW 12.0 Plt Count 407 H MPV 6.8 L Neutrophils % 85.8 H Lymphocytes % 5.8 L Monocytes % 8.1 Eosinophils % 0.3 Basophils % 0.0 Neutrophils # 13.4 H Lymphocytes # 0.9 L Monocytes # 1.3 H Eosinophils # 0.1 Basophils # 0.0 Sodium Potassium Chloride Carbon Dioxide Anion Gap BUN Creatinine Estimated GFR (MDRD) Glucose POC Glucose 123 H Calcium Fluid Diff Path Review Vancomycin Trough 35.5 H* 09/19/17 09/19/17 09/20/17 16:34 21:37 05:15 WBC RBC Hgb Hct MCV MCH MCHC RDW Plt Count MPV Neutrophils % Lymphocytes % Monocytes % Eosinophils % Basophils % Neutrophils # Lymphocytes # Monocytes # Eosinophils # Basophils # Sodium 143 Potassium 3.8 Chloride 108 H Carbon Dioxide 26 Anion Gap 13 BUN 15 Creatinine 1.32 H Estimated GFR (MDRD) 41 Glucose 90 POC Glucose 146 H 129 H Calcium 9.4 Fluid Diff Path Review Vancomycin Trough 09/20/17 09/20/17 05:15 05:19 WBC 13.4 H RBC 3.58 L Hgb 11.5 L Hct 36.3 MCV 101.0 H MCH 32.2 H MCHC 31.8 L RDW 12.1 Plt Count 405 H MPV 7.0 L Neutrophils % 78.8 H Lymphocytes % 9.7 L Monocytes % 9.3 Eosinophils % 1.9 Basophils % 0.3 Neutrophils # 10.5 H Lymphocytes # 1.3 Monocytes # 1.2 H Eosinophils # 0.2 Basophils # 0.0 Sodium Potassium Chloride Carbon Dioxide Anion Gap BUN Creatinine Estimated GFR (MDRD) Glucose POC Glucose 88 Calcium Fluid Diff Path Review Vancomycin Trough - ABG Interpretation ABG Results: ABG pH 7.47 (7.35-7.45) H 09/15/17 20:02 ABG pCO2 33.1 mmHg (35.0-45.0) L 09/15/17 20:02 ABG O2 Sat Calc/Cheri 97.3 % (94.0-100.0) 09/15/17 20:02 ABG Base Excess 0.2 mEq/L (0 (+/-) 2.5) 09/15/17 20:02 - Radiology Interpretation CT scan - chest Status: image reviewed by me (stable CXR, 2 chest tubes) CCU Progress Note: A/P - Problems (1) Empyema of pleural space Current Visit: Yes Status: Acute Code(s): J86.9 - PYOTHORAX WITHOUT FISTULA - Plan Plan: Would suggest stopping Vanc if 48hr cx are negative Needs to get up into chair, and then start PT Hopefully to floor
[2017-09-20] MEDS ORDERED: Milk Of Magnesia 30 ML UDCUP PO PRN (07:52)
[2017-09-20] MEDS ORDERED: Bisacodyl 10 MG SUPP PR PRN (07:52)
[2017-09-20] MEDS ORDERED: Mineral Oil ENEMA PR PRN (07:52)
[2017-09-20] MEDS ORDERED: Ondansetron HCl/PF 4 MG/2 ML Vial IVP PRN (07:52)
[2017-09-20] MEDS: predniSONE 20 MG TAB PO SCH (08:26)
[2017-09-20] MEDS: Enoxaparin Sodium 40 MG/0.4 ML SYRINGE SC SCH (08:27)
[2017-09-20] MEDS: Losartan 25 MG TAB PO SCH (08:27)
--- NOTE | 2017-09-20 08:51 | RAD ---
CHEST 1 VIEW: HISTORY: Chest surgery. Followup. COMPARISON: 09/19/17. FINDINGS: Cardiac silhouette is magnified and enlarged. Pulmonary vasculature is slightly more engorged than o n the previous exam with widespread reticulonodular interstitial prominence. Mediastinum is midline with a small amount of mediastinal gas. Lines and tubes are unchanged in position. No significant r esidual left pneumothorax is apparent. internal audit senior manager leads overlie the chest. IMPRESSION: Slight interval increase in pulmonary vascular congestion. Otherwise, stable postoperative appearan ce of the chest. POS: [facility]
[2017-09-20 11:50] LABS: Vancomycin, Random 15.6 ug/mL (See Comment)
[2017-09-20] MEDS ORDERED: Vancomycin HCl 1.25 GM in Sodium Chloride 0.9% 250 ML 250 ML IVPB SCH (12:00)
[2017-09-20] MEDS: Famotidine 20 MG TAB PO SCH ×2 (12:33→21:16)
[2017-09-20] MEDS: Vancomycin HCl 1.25 GM in Sodium Chloride 0.9% 250 ML 250 ML IVPB SCH (12:36)
[2017-09-20] MEDS: Acetaminophen 500 MG TAB PO SCH ×2 (12:37→18:32)
--- NOTE | 2017-09-20 12:45 | PRG ---
DATE OF SERVICE: 09/20/2017 Ms. Shay is resting comfortably in bed. She is in no respiratory distress. She is awake and alert. Blood pressure slightly elevated at 163/98. Her pulse is 90, respirations are 13 and not labored. LABORATORY DATA: White count is down to 13,400, hemoglobin 11.5. Chemistries: Sodium 143, potassiu m 3.8, chloride 108, bicarbonate 26, BUN 15, creatinine 1.32 and glucose of 129. Clinically, she is improved and likely ready for transfer to a regular floor bed.
[2017-09-20] MEDS: guaiFENesin/DM ER PO SCH ×2 (15:47→21:16)
[2017-09-21] MEDS: Acetaminophen 500 MG TAB PO SCH ×2 (00:43→06:07)
[2017-09-21 01:34] LABS: Vancomycin, Trough 19.4 ug/mL
[2017-09-21] MEDS: Vancomycin HCl 1.25 GM in Sodium Chloride 0.9% 250 ML 250 ML IVPB SCH ×2 (01:40→13:57)
[2017-09-21] MEDS: Labetalol HCl 100 MG/20 ML VIAL SLOW IVP PRN ×3 (02:29→21:29)
[2017-09-21] MEDS: Piperacillin/Tazobactam 3.375 GM in Sodium Chloride 0.9% 100 ML IVPB SCH ×5 (03:00→23:55)
[2017-09-21 05:52] LABS: Anion Gap 12 mmol/L (10-20); BUN (Urea Nitrogen) 13 mg/dL (9.8-20.1); Calc. Creatinine Clearance 85 mL/min (70-130); Calcium 9.6 mg/dL (7.8-10.44); Carbon Dioxide 29 mmol/L (23-31); Chloride 107 mmol/L (98-107); Estimated GFR-MDRD 47; Glucose 89 mg/dL (80-115); Sodium 144 mmol/L (136-145)
[2017-09-21] MEDS: Morphine CADD 1 MG/ML CADD IV PRN (05:59)
--- NOTE | 2017-09-21 08:04 | PDOC.FM ---
- Subjective Subjective: Patient states pain is improved. She also states her breathing is improved. She denies chest pain, abdominal pain, n/v/d, fevers, or chills. She states she really has no further complaints. No other concerns this morning. - Objective Vital Signs & Weight: Vital Signs (12 hours) Temp Pulse Resp BP BP BP Pulse Ox 09/21/17 05:31 76 157/86 H 09/21/17 05:24 89 199/89 H 09/21/17 05:21 89 199/89 H 09/21/17 05:17 97.0 F L 73 16 187/91 H 95 09/21/17 02:37 71 149/83 H 09/21/17 02:29 78 193/103 H 09/21/17 02:10 75 196/103 H 09/20/17 23:49 96.6 F L 92 18 211/110 H 95 09/20/17 21:55 96.6 F L 92 18 95 Weight Weight 107.19 kg Most Recent Monitor Data Heart Rate from ECG 95 NIBP 171/99 NIBP BP-Mean 146 Respiration from ECG 16 SpO2 100 I&O: 09/20/17 09/21/17 09/22/17 06:59 06:59 06:59 Intake Total 4354.7 3012 Output Total 3205 3632 Balance 1149.7 -620 Result Diagrams: 09/20/17 05:15 09/21/17 05:01 Phys Exam - Physical Examination HEENT: PERRLA, moist MMs Chapped lips Neck: no nodes Respiratory: wheezing present Cardiovascular: RRR, no significant murmur Gastrointestinal: soft, non-tender, no distention, positive bowel sounds Musculoskeletal: no edema, pulses present, edema present Neurological: non-focal, normal sensation, moves all 4 limbs reduced on L from pain Lymphatic: no nodes Psychiatric: normal affect, A&O x 3 Skin: no rash Dx/Plan (1) Sepsis due to pneumonia Code(s): J18.9 - PNEUMONIA, UNSPECIFIED ORGANISM; A41.9 - SEPSIS, UNSPECIFIED ORGANISM Status: Acute (2) COPD exacerbation Code(s): J44.1 - CHRONIC OBSTRUCTIVE PULMONARY DISEASE W (ACUTE) EXACERBATION Status: Acute (3) Pleural effusion Code(s): J90 - PLEURAL EFFUSION, NOT ELSEWHERE CLASSIFIED Status: Resolved (4) HTN (hypertension) Code(s): I10 - ESSENTIAL (PRIMARY) HYPERTENSION Status: Acute (5) DM2 (diabetes mellitus, type 2) Status: Acute (6) JOHN (acute kidney injury) Code(s): N17.9 - ACUTE KIDNEY FAILURE, UNSPECIFIED Status: Acute (7) Empyema of pleural space Code(s): J86.9 - PYOTHORAX WITHOUT FISTULA Status: Acute - Plan Plan: 1. Sepsis - Likely resolved - Vancomycin held because of high Vancomycin trough. Continue zosyn. - Continue IVF - Cultures negative 2. COPD exacerbation - Continue steroids - Continue inhalers - Will wean O2 use 3. Empyema - Repeat CXR shows worsening opacification of L side - Consulted Pulmonology, Appreciate Dr. Greene's recs - s/p thoracentesis with sample sent for analysis - Cultures show bacillus species, not anthracis and mold - Cytology points to infectious process - s/p decortication, will remain in CCU until cleared by CV surgery - Continue post op pain control 4. HTN - Continue home meds - Monitor BP 5. DM2 - Accuchecks - Not currently medicated - Will check A1C 6. JOHN - Continue to monitor with BMP - Improved today with Cr at 1.13 - Likely secondary to elevated Vancomycin level, Pharmacy currently dosing - Will hold nephrotoxic drugs at this time. - IVF Disposition: Stable, Will continue routine post op care. Will await surgery recs.
--- NOTE | 2017-09-21 08:21 | RAD ---
AP VIEW OF THE CHEST: INDICATION: Status post thoracotomy. [place] Prior exam dated 09/20/17. FINDINGS: Left subclavian central venous catheter and 3 left-sided thoracostomy tubes are not appreciably carter ed in position. No left-sided pneumothorax is evident. Airspace opacity remains within the left low er lobe which may reflect consolidation or atelectasis. The right lung is clear. Osseous structures are unchanged. Heart size and pulmonary vasculature are within normal limits. IMPRESSION: Stable examination. No pneumothorax demonstrated. POS: [facility]
[2017-09-21] MEDS: Mometasone/Formoterol 120 PUFF INHALER INH SCH ×2 (08:29→19:34)
[2017-09-21] MEDS: Enoxaparin Sodium 40 MG/0.4 ML SYRINGE SC SCH (09:15)
[2017-09-21] MEDS: guaiFENesin/DM ER PO SCH ×2 (09:15→21:28)
[2017-09-21] MEDS: Famotidine 20 MG TAB PO SCH ×2 (09:15→21:28)
[2017-09-21] MEDS: predniSONE 20 MG TAB PO SCH (09:15)
--- NOTE | 2017-09-21 11:31 | ADD-PRG ---
DATE OF SERVICE: 09/21/2017 This is an addendum to the note of Dr. Ricardo Gallo. Ms. Shay is sitting in bed in no distress. She states she is feeling better every day. Chest tube with drainage is still present. She is growing some unusual organisms out of her lung bacteria l cultures, which we will discuss with the ingredient scaler. In any event, clinically she is stable and feeling better.
[2017-09-21] MEDS ORDERED: Acetaminophen 650 MG Suppository PR PRN (12:00)
[2017-09-21] MEDS ORDERED: Acetaminophen 325 MG TAB PO PRN (12:00)
--- NOTE | 2017-09-21 12:29 | PRG ---
DATE OF SERVICE: 09/21/2017 SUBJECTIVE: She is doing well and has less pain. OBJECTIVE: VITAL SIGNS: Temperature is 97.9, pulse 76, respirations 20, and O2 sat 98% on 4 liters. HEENT: Unremarkable. NECK: No JVD. CHEST: Diminished breath sounds in the left base and right side, fairly clear. CARDIAC: S1 and S2 regular. ABDOMEN: Soft. EXTREMITIES: No edema. DIAGNOSTIC DATA: Chest x-ray was reviewed personally. She has two chest tubes in place on the left. She has improved aeration on that side. Cultures from the lungs are growing out bacillus alpha hem olytic strep and gram positive rods. There was also a note about mold species. ASSESSMENT: Empyema, now status post thoracotomy with decortication. RECOMMENDATION: I would continue the Zosyn, but would discontinue the vancomycin. Hopefully, chest tube will come out over the weekend and the patient will be discharged after that. When this time sw itched to oral antibiotics, I would recommend Augmentin and give her full 2 weeks of treatment. I wo uld not recommend treating her with antifungals at this time as I feel that is probably a contaminant and not the cause of the empyema.
[2017-09-21] MEDS: oxyCODONE/Acetaminophen 5 mg/325 mg Tablet PO PRN ×2 (13:56→18:32)
[2017-09-21] MEDS ORDERED: Losartan 25 MG TAB PO SCH (14:45)
[2017-09-21] MEDS ORDERED: Morphine 5 MG/ML SYRINGE SLOW IVP PRN ×2 (21:14→21:15)
[2017-09-22] MEDS: Labetalol HCl 100 MG/20 ML VIAL SLOW IVP PRN ×3 (00:28→14:07)
[2017-09-22] MEDS: Morphine 5 MG/ML SYRINGE SLOW IVP PRN ×3 (01:39→10:40)
[2017-09-22] MEDS: Piperacillin/Tazobactam 3.375 GM in Sodium Chloride 0.9% 100 ML IVPB SCH ×3 (04:58→18:54)
[2017-09-22 05:46] LABS: Anion Gap 10 mmol/L (10-20); BUN (Urea Nitrogen) 15 mg/dL (9.8-20.1); Calc. Creatinine Clearance 76 mL/min (70-130); Calcium 9.3 mg/dL (7.8-10.44); Carbon Dioxide 33 mmol/L (23-31); Chloride 104 mmol/L (98-107); Estimated GFR-MDRD 41; Glucose 76 mg/dL (80-115); Potassium 3.6 mmol/L (3.5-5.1); Sodium 143 mmol/L (136-145)
--- NOTE | 2017-09-22 06:24 | PDOC.FM ---
- Subjective Subjective: Patient states her urination is back to normal. 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 She states she has been having more pain on the left side of her thorax around her surgery site. She was also counseled on her high BP and that I will be titrating up her control. She denies chest pain, n/v/d, sob, fevers, or chills. No other concerns. - Objective Vital Signs & Weight: Vital Signs (12 hours) Temp Pulse Resp BP BP Pulse Ox 09/22/17 06:02 188/94 H 09/22/17 04:59 191/94 H 09/22/17 04:00 98.2 F 80 20 191/94 H 94 L 09/22/17 00:28 181/104 H 09/22/17 00:00 97.9 F 79 20 181/104 H 97 09/21/17 22:10 178/85 H 09/21/17 21:29 93 190/104 H 09/21/17 20:00 97.7 F 93 20 09/21/17 19:34 76 16 98 09/21/17 18:23 97.9 F 91 20 176/97 H 98 Weight Weight 103.827 kg Most Recent Monitor Data Heart Rate from ECG 95 NIBP 171/99 NIBP BP-Mean 146 Respiration from ECG 16 SpO2 100 I&O: 09/20/17 09/21/17 09/22/17 06:59 06:59 06:59 Intake Total 4354.7 3012 2835 Output Total 3202 9362 4210 Balance 1149.7 -620 -1375 Result Diagrams: 09/20/17 05:15 09/22/17 04:25 <Ricardo Gallo - Last Filed: 09/22/17 07:22> - Objective Vital Signs & Weight: Vital Signs (12 hours) Temp Pulse Resp BP BP Pulse Ox 09/22/17 12:12 78 16 95 09/22/17 11:08 180 H 180/95 H 09/22/17 09:14 80 09/22/17 08:35 80 12 09/22/17 08:28 80 12 09/22/17 08:00 97.1 F L 99 16 98 09/22/17 06:02 188/94 H 09/22/17 04:59 191/94 H 09/22/17 04:00 98.2 F 80 20 191/94 H 94 L Weight Weight 103.827 kg Most Recent Monitor Data Heart Rate from ECG 95 NIBP 171/99 NIBP BP-Mean 146 Respiration from ECG 16 SpO2 100 I&O: 09/21/17 09/22/17 09/23/17 06:59 06:59 06:59 Intake Total 3012 2835 Output Total 3632 4270 0 Balance -620 -1435 0 Result Diagrams: 09/20/17 05:15 09/22/17 04:25 <Jess Cortés - Last Filed: 09/22/17 13:51> Phys Exam - Physical Examination Constitutional: NAD HEENT: PERRLA, moist MMs chapped lips Neck: no nodes Respiratory: no wheezing dimished on L Cardiovascular: RRR, no significant murmur Gastrointestinal: soft, non-tender, no distention, positive bowel sounds Musculoskeletal: no edema, pulses present Neurological: non-focal, normal sensation, moves all 4 limbs Lymphatic: no nodes Psychiatric: normal affect, A&O x 3 Skin: no rash <Ricardo Gallo - Last Filed: 09/22/17 07:22> Dx/Plan (1) Sepsis due to pneumonia Code(s): J18.9 - PNEUMONIA, UNSPECIFIED ORGANISM; A41.9 - SEPSIS, UNSPECIFIED ORGANISM Status: Acute (2) COPD exacerbation Code(s): J44.1 - CHRONIC OBSTRUCTIVE PULMONARY DISEASE W (ACUTE) EXACERBATION Status: Acute (3) Pleural effusion Code(s): J90 - PLEURAL EFFUSION, NOT ELSEWHERE CLASSIFIED Status: Resolved (4) HTN (hypertension) Code(s): I10 - ESSENTIAL (PRIMARY) HYPERTENSION Status: Acute (5) DM2 (diabetes mellitus, type 2) Status: Acute (6) JOHN (acute kidney injury) Code(s): N17.9 - ACUTE KIDNEY FAILURE, UNSPECIFIED Status: Acute (7) Empyema of pleural space Code(s): J86.9 - PYOTHORAX WITHOUT FISTULA Status: Acute - Plan Plan: 1. Sepsis - Likely resolved - Vancomycin held because of high Vancomycin trough. Continue zosyn. - Continue IVF - Cultures negative 2. COPD exacerbation - Continue steroids - Continue inhalers - Will wean O2 use 3. Empyema - Repeat CXR shows worsening opacification of L side - Consulted Pulmonology, Appreciate Dr. Greene's recs - s/p thoracentesis with sample sent for analysis - Cultures show bacillus species, not anthracis and mold - Cytology points to infectious process - s/p decortication, will remain in CCU until cleared by CV surgery - Continue post op pain control by PO route 4. HTN - Increased losartan dose - labetolol prn - Initiated amlodipine - Monitor BP 5. DM2 - Accuchecks - Not currently medicated 6. JOHN - Continue to monitor with BMP - Likely secondary to elevated Vancomycin level, Pharmacy currently dosing - Will hold nephrotoxic drugs at this time. - IVF Disposition: Stable, Will continue routine post op care. Will await surgery recs. <Ricardo Gallo - Last Filed: 09/22/17 07:22> Attending Addendum - Attending Addendum I personally evaluated the patient and discussed the management with Dr. Gallo. I agree with the History, Examination, Assessment and Plan documented above with any addition or exceptions noted below. The patient was very upset this morning because her C[employer] TENDER had been discontinued yesterday. She is severely hypertensive and bp meds were being adjusted but the patient refused to take her blood pressure medication this morning because she stated "you are just making everything worse" to the family medicine team rounding. We had a discussion regarding the importance of controlling her blood pressure and the risks associated including stroke but she frequently interrupted the discussion with complaints about her care. We discussed the orders regarding the patient's pain medication with the nursing staff and she will try again to get patient to take her medications. <Jess Cortés - Last Filed: 09/22/17 13:51>
[2017-09-22] MEDS: Mometasone/Formoterol 120 PUFF INHALER INH SCH ×2 (08:35→18:51)
[2017-09-22] MEDS ORDERED: Losartan 25 MG TAB PO SCH ×2 (09:00)
[2017-09-22] MEDS: oxyCODONE/Acetaminophen 5 mg/325 mg Tablet PO PRN (09:01)
[2017-09-22] MEDS: Famotidine 20 MG TAB PO SCH ×4 (09:03→21:24)
[2017-09-22] MEDS: Amlodipine 5 MG TAB PO SCH ×3 (09:03→11:08)
[2017-09-22] MEDS: predniSONE 20 MG TAB PO SCH ×3 (09:03→11:10)
[2017-09-22] MEDS: Enoxaparin Sodium 40 MG/0.4 ML SYRINGE SC SCH ×2 (09:06→09:15)
[2017-09-22] MEDS: Losartan 25 MG TAB PO SCH ×3 (09:07→11:08)
[2017-09-22] MEDS: guaiFENesin/DM ER PO SCH ×4 (09:07→21:24)
--- NOTE | 2017-09-22 09:46 | RAD ---
CHEST 1 VIEW: Date: 09/22/17 HISTORY: Thoracotomy. COMPARISON: Chest radiograph from prior day. FINDINGS: Two left thoracostomy tubes are similar. Central venous catheter is similar. Small left effusion. No large pneumothorax. Right lung is clear. IMPRESSION: No significant change in radiographic appearance of the chest. POS: [facility]
[2017-09-22] MEDS: Acetaminophen 1,000 MG in Premix Bag 1 BAG IVPB SCH ×2 (13:19→18:54)
--- NOTE | 2017-09-22 15:29 | PRG ---
DATE OF SERVICE: 09/22/2017 SUBJECTIVE: She is doing better since her chest tubes were pulled out. She says it was very excruci ating having the tube was pulled out. She is breathing better, but she is still having some degree o f pain. PHYSICAL EXAMINATION: VITAL SIGNS: Her temperature is 97.1, pulse 84, blood pressure was 203/109, earlier O2 sat 95%. HEENT: Unremarkable. NECK: No JVD. LUNGS: Fairly clear without wheezing. Thoracotomy scar is healing. CARDIAC: S1 and S2 regular. ABDOMEN: Soft. EXTREMITIES: No edema. LABORATORY DATA: Sodium 143, potassium 3.6, chloride 104, CO2 of 33, BUN 15, creatinine 1.3, glucose 76. Chest x-ray was reviewed, showed the two chest tubes in place earlier with evacuation of pleura l effusion. ASSESSMENT: Empyema with successful thoracotomy and decortication. RECOMMENDATIONS: Probably convert over to Augmentin by tomorrow and consider sending home provided p ain is under good control.
[2017-09-22 18:08] LABS: Fungus Stain Final report (.)
[2017-09-22 18:08] LABS: Fungus Stain Final report (.)
[2017-09-22 18:08] LABS: Fungus Stain Final report (.)
--- NOTE | 2017-09-22 22:42 | EKG ---
Test Reason : Blood Pressure : / mmHG Vent. Rate : 135 BPM Atrial Rate : 135 BPM P-R Int : 156 ms QRS Dur : 084 ms QT Int : 266 ms P-R-T Axes : 119 182 111 degrees QTc Int : 399 ms Suspect arm lead reversal, interpretation assumes no reversal Sinus tachycardia Right superior axis deviation Inferior infarct , age undetermined Abnormal ECG Confirmed by TONE RODRIGUEZ ([id number]), assistant film editor LEONARDA WILSON ([id number]) on 09/22/2017 10:41:06 PM Referred By: Confirmed By:TONE RODRIGUEZ
[2017-09-22] MEDS: Sodium Chloride 0.9% 1,000 ML IV SCH (23:35)
[2017-09-23] MEDS: Labetalol HCl 100 MG/20 ML VIAL SLOW IVP PRN ×3 (00:18→12:59)
[2017-09-23] MEDS: Acetaminophen 1,000 MG in Premix Bag 1 BAG IVPB SCH ×2 (00:19→05:46)
[2017-09-23] MEDS: Piperacillin/Tazobactam 3.375 GM in Sodium Chloride 0.9% 100 ML IVPB SCH ×2 (00:19→05:46)
[2017-09-23] MEDS: Morphine 5 MG/ML SYRINGE SLOW IVP PRN (04:06)
[2017-09-23 05:47] LABS: Anion Gap 11 mmol/L (10-20); BUN (Urea Nitrogen) 15 mg/dL (9.8-20.1); Calc. Creatinine Clearance 81 mL/min (70-130); Calcium 9.3 mg/dL (7.8-10.44); Carbon Dioxide 33 mmol/L (23-31); Chloride 103 mmol/L (98-107); Estimated GFR-MDRD 46; Glucose 93 mg/dL (80-115); Potassium 3.2 mmol/L (3.5-5.1); Sodium 144 mmol/L (136-145)
--- NOTE | 2017-09-23 06:29 | PDOC.FM ---
- Subjective Subjective: Patient had a better night. She states she is off oxygen supplementation now. She also notes that the pain control is better now that the drains have been removed. She states she is still requesting some of the extra pain medication at times for the breakthrough. She denies headache, chest pain, vision changes, n/v/d, fevers, or chills. She states her breathing is quite improved. Overall she is a much more pleasant patient this morning. No other concerns. - Objective Vital Signs & Weight: Vital Signs (12 hours) Temp Pulse Resp BP BP BP Pulse Ox 09/23/17 05:46 77 09/23/17 04:00 98.4 F 77 18 196/110 H 93 L 09/23/17 00:18 74 192/110 H 09/22/17 23:36 98.5 F 74 17 192/110 H 92 L 09/22/17 20:25 98.3 F 82 18 178/104 H 94 L 09/22/17 18:48 89 16 94 L Weight Weight 103.873 kg Most Recent Monitor Data Heart Rate from ECG 95 NIBP 171/99 NIBP BP-Mean 146 Respiration from ECG 16 SpO2 100 I&O: 09/21/17 09/22/17 09/23/17 06:59 06:59 06:59 Intake Total 3014 7375 1440 Output Total 7021 3788 3399 Balance -931 -4581 -1462 Result Diagrams: 09/20/17 05:15 09/23/17 04:56 <Ricardo Gallo - Last Filed: 09/23/17 07:28> - Objective Vital Signs & Weight: Vital Signs (12 hours) Temp Pulse Resp BP BP Pulse Ox 09/23/17 12:59 74 196/104 H 09/23/17 11:41 70 16 09/23/17 10:44 77 189/84 H 09/23/17 08:49 71 12 09/23/17 08:44 96 09/23/17 08:41 71 12 09/23/17 08:00 98.1 F 74 18 182/84 H 94 L 09/23/17 05:46 77 09/23/17 04:00 98.4 F 77 18 196/110 H 93 L Weight Weight 103.873 kg Most Recent Monitor Data Heart Rate from ECG 95 NIBP 171/99 NIBP BP-Mean 146 Respiration from ECG 16 SpO2 100 I&O: 09/22/17 09/23/17 09/24/17 06:59 06:59 06:59 Intake Total 2835 1440 360 Output Total 4270 4800 Balance -1435 -3360 360 Result Diagrams: 09/20/17 05:15 09/23/17 04:56 <MooJess - Last Filed: 09/23/17 13:56> Phys Exam - Physical Examination Constitutional: NAD HEENT: PERRLA, moist MMs chapped lips Neck: no nodes Respiratory: no wheezing, clear to auscultation bilateral Cardiovascular: RRR, no significant murmur Gastrointestinal: soft, non-tender, no distention, positive bowel sounds Musculoskeletal: no edema, pulses present Neurological: non-focal, normal sensation, moves all 4 limbs Lymphatic: no nodes Psychiatric: normal affect, A&O x 3 Skin: no rash <Ricardo Gallo - Last Filed: 09/23/17 07:28> Dx/Plan (1) Sepsis due to pneumonia Code(s): J18.9 - PNEUMONIA, UNSPECIFIED ORGANISM; A41.9 - SEPSIS, UNSPECIFIED ORGANISM Status: Acute (2) COPD exacerbation Code(s): J44.1 - CHRONIC OBSTRUCTIVE PULMONARY DISEASE W (ACUTE) EXACERBATION Status: Acute (3) Pleural effusion Code(s): J90 - PLEURAL EFFUSION, NOT ELSEWHERE CLASSIFIED Status: Resolved (4) HTN (hypertension) Code(s): I10 - ESSENTIAL (PRIMARY) HYPERTENSION Status: Acute (5) DM2 (diabetes mellitus, type 2) Status: Acute (6) JOHN (acute kidney injury) Code(s): N17.9 - ACUTE KIDNEY FAILURE, UNSPECIFIED Status: Acute (7) Empyema of pleural space Code(s): J86.9 - PYOTHORAX WITHOUT FISTULA Status: Acute - Plan Plan: 1. Sepsis - Likely resolved - Vancomycin held because of high Vancomycin trough. Zosyn discontinued - Transition to PO, Augmentin will continue as outpatient for 2 weeks. - Continue IVF - Cultures negative 2. COPD exacerbation - Continue steroids - Continue inhalers - Will wean O2 use 3. Empyema - Repeat CXR shows worsening opacification of L side - Consulted Pulmonology, Appreciate Dr. Greene's recs - s/p thoracentesis with sample sent for analysis - Cultures show bacillus species, not anthracis and mold - Cytology points to infectious process - s/p decortication, will remain in CCU until cleared by CV surgery - Continue post op pain control by PO route 4. HTN - Increased losartan dose - labetolol prn - Initiated amlodipine - Monitor BP - Added HCTZ to regimen 5. DM2 - Accuchecks - Not currently medicated 6. JOHN - Continue to monitor with BMP, Cr 1.20 this AM - Likely secondary to elevated Vancomycin level. Vancomycin stopped - Will hold nephrotoxic drugs at this time. - IVF Disposition: Stable, Will continue routine post op care. Will await surgery recs , BP control and pain control. <Ricardo Gallo - Last Filed: 09/23/17 07:28> Attending Addendum - Attending Addendum I personally evaluated the patient and discussed the management with Dr. Gallo. I agree with the History, Examination, Assessment and Plan documented above with any addition or exceptions noted below. Pt had chest tube removed yesterday. Pain is a little improved. Still adjusting bp meds for control of hypertension. Anticipate discharge in next few days and pt will need 2 weeks of oral antibiotics. <Jess Cortés - Last Filed: 09/23/17 13:56>
[2017-09-23] MEDS: Mometasone/Formoterol 120 PUFF INHALER INH SCH ×2 (08:49→19:01)
--- NOTE | 2017-09-23 08:49 | RAD ---
AP VIEW CHEST: Date: 09/23/17 HISTORY: Status post thoracotomy. FINDINGS: Comparison made to previous exam from 09/22/17. AP view of chest demonstrates again left subclavian central line in place. Two left-sided chest tubes have been removed. There is some mild pulmonary vascular congestion seen. No evidence of pneumothora x seen. There does appear to be a small left-sided pleural effusion. IMPRESSION: Removal of left-sided chest tubes. No significant post removal abnormality is seen and no significant interval change is noted otherwise. POS: [facility]
[2017-09-23] MEDS ORDERED: Hydrochlorothiazide 25 MG TAB PO SCH (09:00)
[2017-09-23] MEDS: predniSONE 20 MG TAB PO SCH (10:44)
[2017-09-23] MEDS: Amlodipine 5 MG TAB PO SCH (10:44)
[2017-09-23] MEDS: Famotidine 20 MG TAB PO SCH ×2 (10:45→21:51)
[2017-09-23] MEDS: Amoxicillin/Potassium Clav 875 MG TAB PO SCH ×2 (10:45→21:51)
[2017-09-23] MEDS: guaiFENesin/DM ER PO SCH ×2 (10:46→21:51)
[2017-09-23] MEDS: Losartan 25 MG TAB PO SCH (10:46)
[2017-09-23] MEDS: Enoxaparin Sodium 40 MG/0.4 ML SYRINGE SC SCH (10:47)
[2017-09-23] MEDS: HYDROmorphone 2 MG TAB PO PRN ×3 (11:04→23:57)
[2017-09-23] MEDS: Acetaminophen 500 MG TAB PO SCH ×3 (12:59→23:06)
--- NOTE | 2017-09-23 13:30 | PRG ---
DATE OF SERVICE: 09/23/2017 SUBJECTIVE: She feels better and just beginning to start walking around. OBJECTIVE: VITAL SIGNS: On exam, her temperature is 98.1, pulse 70, blood pressure 189/84 and respiratory rate 16. HEENT: Unremarkable. NECK: No JVD. LUNGS: Clear right, slight diminished breath sounds left base. Surgical scar healing well. ABDOMEN: Soft and nontender. EXTREMITIES: No edema. LABORATORY DATA: Sodium 144, potassium 3.2, chloride 103, CO2 of 33, BUN 15, creatinine 1.2 and gluc ose 93. IMAGING DATA: Chest x-ray shows stable findings on the left after the chest tube has been pulled yes terday. ASSESSMENT: Status post evacuation of a left empyema. PLAN: The patient is likely to be discharged tomorrow after surgical drains have been removed. I wo kennethd treat her with antibiotics for a full 2 weeks. No other recommendations at this time.
[2017-09-23] MEDS: Hydrochlorothiazide 25 MG TAB PO SCH (21:52)
[2017-09-23] MEDS: hydrALAZINE 20 MG/ML VIAL SLOW IVP PRN ×2 (21:58→23:59)
--- NOTE | 2017-09-23 22:06 | PDOC.FM ---
Addendum entered and electronically signed by Lore Greenfield DO 09/24/17 08 :59: This is progress note for 09/24/2017. Original Note: - Subjective Subjective: Patient stated she did not have a good night. She states that she keeps being told her BP is elevated, but she doesn't feel as though it is. She claims that the BP medications make her feel "funny", and she would rather not take them. She has not had an issue with BP prior to being admitted to the hospital this time around. Additionally, she was taking two different pain medications and did not like the way they made her feel. CV surgery was in room this morning removing pump. They will write patient script for pain medication and have her follow as outpatient. - Objective MAR Reviewed: Yes Vital Signs & Weight: Vital Signs (12 hours) Temp Pulse Resp BP BP Pulse Ox 09/23/17 21:58 80 202/100 H 09/23/17 19:00 78 16 95 09/23/17 16:00 98.1 F 78 20 189/67 H 94 L 09/23/17 15:49 78 16 09/23/17 12:59 74 196/104 H 09/23/17 12:00 98.2 F 74 16 196/104 H 94 L 09/23/17 11:41 70 16 09/23/17 10:44 77 189/84 H Weight Weight 103.873 kg Most Recent Monitor Data Heart Rate from ECG 95 NIBP 171/99 NIBP BP-Mean 146 Respiration from ECG 16 SpO2 100 I&O: 09/22/17 09/23/17 09/24/17 06:59 06:59 06:59 Intake Total 2835 1440 720 Output Total 4270 4800 1400 Balance -1435 -3360 -680 Result Diagrams: 09/20/17 05:15 09/24/17 04:26 EKG Reviewed by me: Yes Radiology Reviewed by me: Yes <Lore Greenfield - Last Filed: 09/24/17 08:47> - Objective Vital Signs & Weight: Vital Signs (12 hours) Temp Pulse Resp BP BP BP Pulse Ox 09/24/17 10:33 84 16 95 09/24/17 09:54 84 194/99 H 09/24/17 07:49 101 H 16 09/24/17 04:00 178/84 H 09/24/17 03:15 98.5 F 93 16 181/98 H 93 L Weight Weight 100.97 kg Most Recent Monitor Data Heart Rate from ECG 95 NIBP 171/99 NIBP BP-Mean 146 Respiration from ECG 16 SpO2 100 I&O: 09/23/17 09/24/17 09/25/17 06:59 06:59 06:59 Intake Total 1440 1330 Output Total 4800 2200 Balance -3360 -870 Result Diagrams: 09/20/17 05:15 09/24/17 04:26 <Braeden Silva - Last Filed: 09/24/17 13:12> Phys Exam - Physical Examination Constitutional: NAD HEENT: moist MMs Neck: supple Respiratory: no wheezing Cardiovascular: RRR, no significant murmur Gastrointestinal: soft, no distention Musculoskeletal: no edema Neurological: moves all 4 limbs Psychiatric: A&O x 3 Deviation from normal: vesicular lesion on upper lip <Lore Greenfield - Last Filed: 09/24/17 08:47> Dx/Plan (1) Empyema of pleural space Code(s): J86.9 - PYOTHORAX WITHOUT FISTULA Status: Resolved (2) JOHN (acute kidney injury) Code(s): N17.9 - ACUTE KIDNEY FAILURE, UNSPECIFIED Status: Acute (3) COPD exacerbation Code(s): J44.1 - CHRONIC OBSTRUCTIVE PULMONARY DISEASE W (ACUTE) EXACERBATION Status: Acute (4) DM2 (diabetes mellitus, type 2) Status: Chronic (5) HTN (hypertension) Code(s): I10 - ESSENTIAL (PRIMARY) HYPERTENSION Status: Chronic QualifierTitle: Hypertension type: essential hypertension Qualified Code( s): I10 - Essential (primary) hypertension (6) Sepsis due to pneumonia Code(s): J18.9 - PNEUMONIA, UNSPECIFIED ORGANISM; A41.9 - SEPSIS, UNSPECIFIED ORGANISM Status: Resolved - Plan Plan: 1. Sepsis 2/2 empyema/pneumonia - Resolved, s/p decortication - Transitioned to PO Augmentin, will continue as outpatient for 2 weeks. - D/C IVF - Cultures negative to date; pending fungal cultures 2. COPD exacerbation - D/C steroids after total of 5 days - Continue inhalers - No longer requiring O2 3. Empyema - Repeat CXR shows worsening opacification of L side - Consulted Pulmonology, Appreciate Dr. Greene's recs - s/p thoracentesis with sample sent for analysis - Cultures show bacillus species, not anthracis and mold - Cytology points to infectious process - s/p decortication - Continue post op pain control by PO route - All surgical drains removed yesterday 4. HTN - Increased losartan dose (max) - labetolol prn - Initiated amlodipine - Monitor BP - Added HCTZ to regimen - May consider maxing two medications and removing the third 5. DM2 - Accuchecks - Not currently medicated 6. JOHN - Continue to monitor with BMP - Likely secondary to elevated Vancomycin level. Vancomycin stopped - Will hold nephrotoxic drugs at this time. - IVF 7. Hypokalemia - Replace potassium - Recheck BMP in afternoon - Mg level Disposition: Stable, Will continue routine post op care. Will await surgery recs , BP control and pain control. Plan for d/c home today if ok'd by CV surgery and pulmonology <Lore Greenfield - Last Filed: 09/24/17 08:47> Attending Addendum - Attending Addendum I personally evaluated the patient and discussed the management with Dr. Greenfield. I agree with the History, Examination, Assessment and Plan documented above with any addition or exceptions noted below. Patient doing well this morning. She has had all tube and drains removed by CV surgery and they are signing off the case. Pain control per CV surgery. She is ambulating and breathing well. She will need Augmentin therapy for 2 weeks. Should be stable for discharge later today once her potassium level is rechecked. Will need continuation of BP meds and can discuss weaning from them with her PCP as her BP continues to be elevated. <Braeden Silva - Last Filed: 09/24/17 13:12>
[2017-09-24] MEDS: HYDROmorphone 2 MG TAB PO PRN ×2 (04:28→11:19)
[2017-09-24 05:03] LABS: Anion Gap 14 mmol/L (10-20); BUN (Urea Nitrogen) 16 mg/dL (9.8-20.1); Calc. Creatinine Clearance 82 mL/min (70-130); Calcium 10.3 mg/dL (7.8-10.44); Carbon Dioxide 31 mmol/L (23-31); Chloride 99 mmol/L (98-107); Estimated GFR-MDRD 47; Glucose 111 mg/dL (80-115); Sodium 141 mmol/L (136-145)
[2017-09-24 05:06] LABS: Potassium 2.9 mmol/L (3.5-5.1)
[2017-09-24] MEDS: Acetaminophen 500 MG TAB PO SCH (05:53)
[2017-09-24 06:33] VITALS: BMI 34.8
[2017-09-24] MEDS: Mometasone/Formoterol 120 PUFF INHALER INH SCH (07:49)
[2017-09-24] MEDS ORDERED: Potassium Chloride 20 MEQ TAB PO SCH (08:45)
--- NOTE | 2017-09-24 09:07 | RAD ---
CHEST 1 VIEW: HISTORY: Thoracotomy. COMPARISON: Chest 1 view prior day. FINDINGS: Central venous catheter tip in similar position. Small left effusion. There is mild atelectatic bryan nge in the left lung base. The right lung is clear. IMPRESSION: No significant change. POS: [facility]
[2017-09-24] MEDS: Amlodipine 5 MG TAB PO SCH (09:54)
[2017-09-24] MEDS: predniSONE 20 MG TAB PO SCH (09:54)
[2017-09-24] MEDS: Amoxicillin/Potassium Clav 875 MG TAB PO SCH (09:54)
[2017-09-24] MEDS: Losartan 25 MG TAB PO SCH (09:55)
[2017-09-24] MEDS: guaiFENesin/DM ER PO SCH (09:55)
[2017-09-24] MEDS: Hydrochlorothiazide 25 MG TAB PO SCH (09:55)
[2017-09-24] MEDS: Famotidine 20 MG TAB PO SCH (09:55)
[2017-09-24] MEDS: Enoxaparin Sodium 40 MG/0.4 ML SYRINGE SC SCH (09:56)
--- NOTE | 2017-09-24 10:37 | PRG ---
DATE OF SERVICE: 09/24/2017 SUBJECTIVE: Ms. Shay is feeling better and wants to go home. PHYSICAL EXAMINATION: VITAL SIGNS: Temperature 98.5, pulse 84, blood pressure 194/99. HEENT: Unremarkable. NECK: No JVD. CHEST: Clear. CARDIAC: S1 and S2 regular. ABDOMEN: Soft. EXTREMITIES: No edema. LABORATORY DATA: Sodium 141, potassium 2.9, BUN 16, creatinine 1.2, glucose 111. ASSESSMENT: 1. Status post decortication for empyema. 2. Hypertension. 3. Hyperkalemia. RECOMMENDATION: I would replace potassium. I would treat her with antibiotics for 2 weeks. From my standpoint, she is stable for discharge from a pulmonary standpoint. There may be other issues need to be addressed by the primary team. Pulmonary will sign off.
[2017-09-24 14:33] LABS: Anion Gap 14 mmol/L (10-20); BUN (Urea Nitrogen) 14 mg/dL (9.8-20.1); Calc. Creatinine Clearance 79 mL/min (70-130); Calcium 10.3 mg/dL (7.8-10.44); Carbon Dioxide 32 mmol/L (23-31); Chloride 97 mmol/L (98-107); Estimated GFR-MDRD 46; Glucose 137 mg/dL (80-115); Potassium 3.6 mmol/L (3.5-5.1); Sodium 139 mmol/L (136-145)
[2017-09-24 22:46] VITALS: BP 151/84; TEMP 97.4
--- NOTE | 2017-09-25 12:37 | DIS-2 ---
DATE OF ADMISSION: 09/15/2017 DATE OF DISCHARGE: 09/24/2017 RESIDENT: Dr. Gallo. ADMITTING ATTENDING: Dr. Villeda. DISCHARGE ATTENDING: Dr. Silva. CONSULTATIONS: Cardiovascular Surgery with Dr. Turcios. Also, Pulmonology, Dr. Greene, and with PT evaluation and treatment. PROCEDURES: The patient underwent a chest x-ray on 09/15/2017 that showed dense consolidation of the left lung base. The patient also underwent a chest thorax CTA on 09/15/2017 that showed no evidence of pulmonary embolus, moderate-sized left pleural effusion, some of which appears loculated along the lateral lower chest wall. There is dense left basilar atelectasis and streaky atelectasis in the right lung base. The patient also underwent a thoracentesis, Dr. Greene, on 09/18/2017. The patient then underwent a muscle-sparing left thoracotomy with total lung decortication, subpleural catheter placement x2, fiberoptic bronchoscopy with left lung bronchial alveolar lavage on 09/18/[address] Cesar. Patient then underwent chest x-rays for the next days showing stable post- surgical changes with no pneumothorax demonstrated. PRIMARY DISCHARGE DIAGNOSES: 1. Empyema pleural space. 2. Acute kidney injury. 3. Chronic obstructive pulmonary disease exacerbation. 4. Diabetes mellitus, type 2. 5. Hypertension. 6. Sepsis due to pneumonia. DISCHARGE MEDICATIONS: 1. Dulera 100 mcg/5 mcg inhalers 2 puffs inhaled b.i.d. 2. Proventil HFA 2 puffs inhaled q.4 hours. 3. Amlodipine 5 mg daily. 4. Augmentin 875 mg p.o. q. 12 hours for 2 weeks. 5. Mucinex DM 600/30 mg 1 tab p.o. q.12 hours. 6. Hydrochlorothiazide 25 mg p.o. b.i.d. 7. Losartan 100 mg p.o. daily. 8. Potassium chloride 20 mEq p.o. daily. DISCONTINUED MEDICATIONS: Losartan and potassium 50 mg. HISTORY OF PRESENT ILLNESS AND HOSPITAL COURSE: A 62-year-old female, who presents with a chief complaint of shortness of breath, saying she had a cough on Sunday. When saw her primary care physician, Dr. Villeda, was told that she had bronchitis and was given amoxicillin with an extra inhaler. She also has a diagnosis of COPD and she stated that she then started having fevers. She reports having a cough that was productive of sputum, sometimes brown, sometimes mucousy in color. Patient also endorsed left-sided chest pain and rib pain that was new onset for about the last week. The patient was previously checked for influenza prior to hospitalization that was negative. Patient, otherwise, denied any chest pain, nausea, vomiting, diarrhea, or constipation, any new rashes, itching, or muscle pains. During this hospitalization, the patient had some notable lab values of a white blood cell count that ranged from 24.1-13.4; a potassium that ranged from 4.1 to as low as 2.9 and it was 3.6 on day of discharge. The patient also had the thoracentesis results yielded an exudative-type effusion that was indicative of an inflammatory process. Patient had very hypertensive range blood pressures ranging from 200/110 down into the 130s/70s. Patient was very resistant to a change in blood pressure regimen as she states that she thought that she would bottom out and she would be at risk for further injury and falls from her low blood pressure. Her blood pressure regimen was successfully increased during this hospitalization and is determined that she will have better control outside of this acute infection and postop period. Patient was afebrile during this hospitalization. Patient did have some cultures that did, from her surgery , grew out bacillus species, not anthracis, mold species, alpha hemolytic streptococcus, and gram-positive rods. The anaerobic culture also did grow out Veillonella species. As per Dr. Greene's recommendations with Pulmonology, he determined that the patient needed to be on Augmentin for 2 weeks post- hospitalization antibiotics. Patient also was seen by Dr. Cesar with CV Surgery. He took the patient back for a decortication with PleurX catheter placement for resolution of her parapneumonic effusion. Patient, otherwise, had a routine postoperative course with some problems with good pain control. However, the patient did achieve good pain control with parenteral and oral agents. Patient, otherwise, had no further complications during this hospitalization and was discharged on appropriate condition. DISCHARGE DISPOSITION: Stable. DISCHARGE INSTRUCTIONS: 1. Location: She will be discharged home into the care of herself and her . 2. Diet: Will be a diabetic heart healthy diet. 3. Activity: Will be with no restrictions, although we do want her to take it easy in this course of postoperative section because of pain. 4. Followup: Will be with her primary care provider, Dr. Villeda, in 1 week to further discuss her hospitalization as well as her long-term management of hypertension. She will also be set up with Dr. Cesar in 2 weeks for routine postoperative followup. We wished this patient best of luck. KURT
[2017-10-18 17:13] LABS: Fungus Culture Final report (.)
[2017-10-19 16:15] LABS: Fungus Culture Final report (.)
[2017-10-19 16:15] LABS: Fungus Culture Final report (.)
== END 2017-09-24 18:10 | disposition home or self-care (01) | DRG 853 ==
LOC: ERS 19:16 → ERHOLD 22:30 → 2NO 09-16 02:31 → CCU 09-18 12:38 → 2NO 09-20 21:44
PROVIDERS: ADMIT Family Medicine; ATTEND Family Medicine
PROC: 0W9B3ZX Drainage of Left Pleural Cavity, Percutaneous Approach, Diagnostic (ICD-10-PCS; 2017-09-17)
PROC: 0B9J8ZX Drainage of Left Lower Lung Lobe, Via Natural or Artificial Opening Endoscopic, Diagnostic (ICD-10-PCS; principal; 2017-09-18)
PROC: 0B9G8ZX Drainage of Left Upper Lung Lobe, Via Natural or Artificial Opening Endoscopic, Diagnostic (ICD-10-PCS; 2017-09-18)
PROC: 0BNL0ZZ Release Left Lung, Open Approach (ICD-10-PCS; 2017-09-18)
PROC: 02HV33Z Insertion of Infusion Device into Superior Vena Cava, Percutaneous Approach (ICD-10-PCS; 2017-09-18)
PROC: 0W9 Anatomical Regions, General, Drainage (ICD-10-PCS; 2017-09-18)
PROC: 0W9B00Z Drainage of Left Pleural Cavity with Drainage Device, Open Approach (ICD-10-PCS; 2017-09-18)
DX: A41.9 Sepsis, unspecified organism (principal); J18.9 Pneumonia, unspecified organism; J86.9 Pyothorax without fistula; J90 Pleural effusion, not elsewhere classified; N17.9 Acute kidney failure, unspecified; J98.11 Atelectasis; J44.0 Chronic obstructive pulmonary disease with (acute) lower respiratory infection; J44.1 Chronic obstructive pulmonary disease with (acute) exacerbation; E87.1 Hypo-osmolality and hyponatremia; E11.9 Type 2 diabetes mellitus without complications; I10 Essential (primary) hypertension; Z87.891 Personal history of nicotine dependence; E87.5 Hyperkalemia; F31.9 Bipolar disorder, unspecified; E87.6 Hypokalemia
CPT/HCPCS: 36415; 36416; 71045; 71046; 71275; 80048; 80053; 80202; 81003; 81015; 82150; 82550; 82553; 82805; 82945; 83036; 83605; 83615; 83690; 83735; 83880; 83986; 84157; 84443; 84478; 84484; 85025; 85060; 85610; 85730; 86850; 86900; 86901; 86921; 87040; 87070; 87076; 87086; 87102; 87116; 87205; 87206; 87804; 87899; 88112; 88305; 89051; 93005; 94640; 94660; 96365; 96366; 96367; 96375; 99292; J2270; A4216; A4306; A4353; C1751; G8978-GP-CM; G8979-GP-CJ; J0131; J0360; J1100; J1642; J1650; J1885; J1956; J2001; J2250; J2274; J2405; J2543; J2704; J2795; J3010; J3370; J7050; J7506; J7620

== ENCOUNTER 2017-10-08 10:19 | Outpatient (CLI) | payer OTHER ==
--- NOTE | 2017-10-08 11:36 | RAD ---
PA AND LATERAL VIEWS CHEST: Date: 10/08/17 HISTORY: Dyspnea. FINDINGS: Comparison made with exam of 09/24/17. The heart size is normal. The aorta is tortuous. A small left-sided pleural effusion is again seen. T he right lung is clear. No pneumothoraces are seen. There are degenerative changes in the spine. IMPRESSION: Small left pleural effusion. POS: [facility]
== END 2017-10-08 10:20 | disposition home or self-care (01) ==
LOC: RAD 10:19
PROVIDERS: ATTEND Internal Medicine Critical Care Medicine
DX: R06.00 Dyspnea, unspecified (principal); J90 Pleural effusion, not elsewhere classified
CPT/HCPCS: 71046

== ENCOUNTER 2018-02-26 12:05 | Outpatient (CLI) | payer OTHER | END 2018-02-26 12:06 | disposition home or self-care (01) | LOC: BICRAD 12:05 | PROVIDERS: ATTEND Family Medicine | DX: R50.9 Fever, unspecified (principal) | CPT/HCPCS: 71046 ==